=== PATIENT | male | born 1995 | race Caucasian/White ===

== ENCOUNTER → 2016-10-18 | Outpatient (CLI) | payer SELFPAY ==
[2016-10-18 09:46] LABS: SPERM MORPHOLOGY SENT TO REFERENC LAB
[2016-10-18 10:50] LABS: ROUND CELL CONC. 5.3 X10^6/mL (<5.1); SA NONMOTILE CONCENTRATION 33.3 X10^6/mL; SA NONMOTILE COUNT1 329; SA NONMOTILE COUNT2 337; SA ROUND CELL COUNT1 54; SA ROUND CELL COUNT2 51
[2016-10-18 11:01] LABS: SA DILUTION CNT 1 730; SA DILUTION CNT 2 751; SA DILUTION FACTOR 3; SA SPERM MOTILE CONC 188.9 X10^6mL; SPERM PROGRESSION 4
== END ==
LOC: LAB 09:08
PROVIDERS: ATTEND Nurse Practitioner Family
DX: N46.9 Male infertility, unspecified (principal)
CPT/HCPCS: 89320

== ENCOUNTER 2017-02-26 15:42 | Inpatient (IN) | payer SELFPAY ==
[2017-02-26] MEDS ORDERED: NORMAL SALINE 1000 ML 2,000 ML IV ONE (16:12)
[2017-02-26] MEDS ORDERED: NORMAL SALINE 100 ML with INSULIN REGULAR, HUMAN 100 UNIT IV PRN ×2 (16:12)
--- NOTE | 2017-02-26 16:14 | ER Document Report ---
ED Blood Sugar Problem - General Mode of Arrival: Ambulatory Information source: Patient TRAVEL OUTSIDE OF THE [place] IN LAST 30 DAYS: No - HPI Patient complains to provider of: Hyperglycemia Onset: This morning Associated symptoms: Other - see notes above <RAFAEL CHONG - Last Filed: 02/26/17 18:19> <GIBSON ALSTON - Last Filed: 02/26/17 19:21> - General Chief Complaint: High Blood Sugar Stated Complaint: BLOOD SUGAR PROBLEMS Time Seen by Provider: 02/26/17 16:06 Notes: 22 year old male with history of diabetes mellitus type I and DKA presents to the ED complaining of hyperglycemia that started this morning. Patient's blood sugar this morning after waking up was greater than 600, but is unsure of the exact number since his monitor doesn't read that high. Patient states he tried to get out of work, but was told that he needed a doctor's note. Patient arrived at work and was told to clock out after a few minutes and go home. Patient then proceeded to come to the ED to be evaluated. Blood sugar over the past couple days have been under 300. Patient states he normally runs in the 200s. Patient reports nausea, but denies fever, abdominal pain, vomiting, diarrhea, and blurry vision. Patient reports that he is staying hydrated. Patient states he does not have a primary care provider but [facility] is prescribing Novolog and Toujeo which he is taking as prescribed. Patient feels similar to prior episode of DKA, but not as severe. (RAFAEL CHONG) - Related Data Allergies/Adverse Reactions: No Known Allergies Allergy (Verified 02/26/17 15:47) Past Medical History - General Information source: Patient - Social History Smoking Status: Never Smoker Chew tobacco use (# tins/day): No Frequency of alcohol use: Occasional Drug Abuse: None Family History: Reviewed & Not Pertinent Patient has suicidal ideation: No Patient has homicidal ideation: No - Past Medical History Cardiac Medical History: Denies: Hx Heart Murmur Endocrine Medical History: Reports: Hx Diabetes Mellitus Type 1 Renal/ Medical History: Denies: Hx Peritoneal Dialysis Psychiatric Medical History: Denies: Hx Depression Surgical Hx: Negative - Immunizations Immunizations up to date: Yes Hx Diphtheria, Pertussis, Tetanus Vaccination: Yes <RAFAEL CHONG - Last Filed: 02/26/17 18:19> Review of Systems - Review of Systems Constitutional: No symptoms reported. denies: Fever EENT: No symptoms reported Cardiovascular: No symptoms reported Respiratory: No symptoms reported Gastrointestinal: See HPI, Nausea. denies: Abdominal pain, Diarrhea, Vomiting Genitourinary: No symptoms reported Male Genitourinary: No symptoms reported Musculoskeletal: No symptoms reported Skin: No symptoms reported Hematologic/Lymphatic: No symptoms reported Neurological/Psychological: No symptoms reported -: Yes All other systems reviewed and negative <RAFAEL CHONG - Last Filed: 02/26/17 18:19> Physical Exam <RAFAEL CHONG - Last Filed: 02/26/17 18:19> <GIBSON ALSTON - Last Filed: 02/26/17 19:21> - Vital signs Vitals: Temp Pulse Resp BP Pulse Ox 98.3 F 102 H 16 138/74 H 97 02/26/17 15:48 02/26/17 15:48 02/26/17 15:48 02/26/17 15:48 02/26/17 15:48 - Notes Notes: GENERAL: Alert, interacts well. Appears fatigued. HEAD: Normocephalic, atraumatic. EYES: Pupils equal, round, and reactive to light. Extraocular movements intact. ENT: Oral mucosa dry, tongue midline. NECK: Full range of motion. Supple. Trachea midline. LUNGS: Clear to auscultation bilaterally, no wheezes, rales, or rhonchi. No respiratory distress. HEART: Regular rhythm, but mildly tachycardic. 1/6 systolic murmur. No gallops or rubs. ABDOMEN: Soft, non-tender. Non-distended. Bowel sounds present in all 4 quadrants. EXTREMITIES: Moves all 4 extremities spontaneously. No edema, radial and dorsalis pedis pulses 2/4 bilaterally. No cyanosis. NEUROLOGICAL: Alert and oriented x3. Normal speech. PSYCH: Normal affect, normal mood. SKIN: Warm, dry, normal turgor. No rashes or lesions noted. (RAFAEL CHONG) Course - Laboratory Result Diagrams: 02/26/17 16:15 02/26/17 16:15 - Consults Dr. Mancia Time consulted: 17:40 <RFAAEL CHONG - Last Filed: 02/26/17 18:19> - Laboratory Result Diagrams: 02/26/17 16:15 02/26/17 16:15 <GIBSON ALSTON - Last Filed: 02/26/17 19:21> - Re-evaluation Re-evalutation: 02/26/17 17:47 Patient started on insulin drip and given 2 L normal saline bolus, tachycardia has improved, laboratory studies are consistent with diabetic ketoacidosis, CBC unremarkable, ABG shows metabolic acidosis with pH of 7.31, CO2 of 34 and bicarb of 17.1. Chemistry show pseudohyponatremia with a sodium of 132.2, hyperkalemia 5.4, CO2 low at 18 anion gap elevated at 21, glucose significantly elevated at 619. Patient was discussed with Dr. Mancia who agrees to accept the patient to his service in the intensive care unit. (GIBSON ALSTON) - Vital Signs Vital signs: Temp Pulse Resp BP Pulse Ox 98.3 F 102 H 16 138/74 H 97 02/26/17 15:48 02/26/17 15:48 02/26/17 15:48 02/26/17 15:48 02/26/17 15:48 - Laboratory Laboratory results interpreted by me: 02/26/17 02/26/17 02/26/17 16:15 16:15 17:10 MCHC 31.9 L RDW 14.3 H Carbonic Acid 1.04 L ABG pH 7.31 L ABG pCO2 34.5 L ABG pO2 109.0 H ABG HCO3 17.1 L ABG Total CO2 18.2 L Sodium 132.2 L Potassium 5.4 H Chloride 93 L Carbon Dioxide 18 L Anion Gap 21 H Glucose 619 H* Total Bilirubin 1.4 H Alkaline Phosphatase 211 H Urine Glucose (UA) Urine Ketones 02/26/17 18:00 MCHC RDW Carbonic Acid ABG pH ABG pCO2 ABG pO2 ABG HCO3 ABG Total CO2 Sodium Potassium Chloride Carbon Dioxide Anion Gap Glucose Total Bilirubin Alkaline Phosphatase Urine Glucose (UA) >=500 H Urine Ketones 80 H - EKG Interpretation by Me Additional EKG results interpreted by me: 02/26/17 17:47 EKG shows sinus rhythm at a rate of 93, normal axis, normal intervals, no ST segment elevations or depressions, no T-wave inversion, no peak T waves, no ill effects from the hyperkalemia per my interpretation. (GIBSON ALSTON) - Consults Dr. Mancia Reason for consultation: 02/26/17 17:40 Patient was discussed with Dr. Mancia who agrees to admit the patient. (RAFAEL CHONG) Critical Care Note - Critical Care Note Total time excluding time spent on procedures (mins): 45 <GIBSON ALSTON - Last Filed: 02/26/17 19:21> Discharge <RAFAEL CHONG - Last Filed: 02/26/17 18:19> - Discharge Admitting Provider: Grace Mancia Unit Admitted: ICU <GIBSON ALSTON - Last Filed: 02/26/17 19:21> - Discharge Clinical Impression: DKA (diabetic ketoacidoses) Qualifiers: Diabetes mellitus type: type 1 Diabetes mellitus complication detail: without coma Qualified Code(s): E10.10 - Type 1 diabetes mellitus with ketoacidosis without coma Condition: Serious Disposition: ADMITTED INPATIENT Scribe Attestation: 02/26/17 19:21 I personally performed the services described in the documentation, reviewed and edited the documentation which was dictated to the scribe in my presence, and it accurately records my words and actions. (GIBSON ALSTON) Scribe Documentation - Scribe Written by Sherif:: Sherif Pepe, 02/26/2017 1733 acting as scribe for :: Annelise <RAFAEL CHONG - Last Filed: 02/26/17 18:19>
[2017-02-26 16:24] LABS: ABSOLUTE EOSINOPHILS # (AUTO) 0.2 10^3/uL (0.0-0.6); ABSOLUTE LYMPHOCYTES (AUTO) 1.8 10^3/uL (0.5-4.7); ABSOLUTE MONOCYTES (AUTO) 0.5 10^3/uL (0.1-1.4); ABSOLUTE NEUT (AUTO) 5.8 10^3/uL (1.7-8.2); BASOPHILS % (AUTO) 0.1 % (0-2); EOSINOPHILS % (AUTO) 2.6 % (0-6); HEMATOCRIT 44.7 % (37.9-51.0); HEMOGLOBIN 14.2 g/dL (13.5-17.0); HGB HCT DIFFERENCE -2.1; LYMPHOCYTES % (AUTO) 21.8 % (13-45); MEAN CORPUSCULAR HEMOGLOBIN 28.6 pg (27.0-33.4); MEAN CORPUSCULAR HGB CONC 31.9 g/dL (32.0-36.0); MEAN CORPUSCULAR VOLUME 90 fl (80-97); RED BLOOD COUNT 4.98 10^6/uL (4.35-5.55); RED CELL DISTRIBUTION WIDTH 14.3 % (11.5-14.0); SEGMENTED NEUTROPHILS % (AUTO) 69.5 % (42-78); WHITE BLOOD COUNT 8.4 10^3/uL (4.0-10.5)
[2017-02-26] MEDS ORDERED: INSULIN REG, HUMAN 100 UNIT/ML 3 ML VIAL (PYX) ONE (16:38)
[2017-02-26 16:41] LABS: ALANINE AMINOTRANSFERASE 63 U/L (21-72); ALBUMIN 4.6 g/dL (3.5-5.0); ALKALINE PHOSPHATASE 211 U/L (38-126); ASPARTATE AMINO TRANSFERASE 49 U/L (17-59); BILIRUBIN,DIRECT 0.4 mg/dL (0.0-0.4); BILIRUBIN,TOTAL 1.4 mg/dL (0.2-1.3); BLOOD UREA NITROGEN 20 mg/dL (7-20); CALCIUM 9.8 mg/dL (8.4-10.2); CHLORIDE 93 mmol/L (98-107); CREATININE RESULT 0.89 mg/dL (0.52-1.25); POTASSIUM 5.4 mmol/L (3.6-5.0); TOTAL PROTEIN 7.7 g/dL (6.3-8.2)
[2017-02-26 16:49] LABS: GLUCOSE 619 mg/dL (75-110)
[2017-02-26 16:51] LABS: ANION GAP 21 (5-19); CARBON DIOXIDE 18 mmol/L (22-30); SODIUM 132.2 mmol/L (137-145)
[2017-02-26 17:34] LABS: ARTERIAL BLOOD BASE EXCESS -8.1 mmol/L; ARTERIAL BLOOD O2 SATURATION 97.6 % (94-98)
[2017-02-26] MEDS ORDERED: GLUCAGON,HUMAN RECOMB 1 MG INJ IM PRN (18:03)
[2017-02-26] MEDS ORDERED: DEXTROSE 5%-NORMAL SALINE 1,000 ML IV PRN (18:03)
[2017-02-26] MEDS ORDERED: IPRATROPIUM/ALBUTEROL 0.5-2.5 MG/3 ML AMPUL NEB PRN (18:03)
[2017-02-26] MEDS ORDERED: ACETAMINOPHEN 325 MG TABLET PO PRN (18:03)
[2017-02-26] MEDS ORDERED: DEXTROSE 40% GEL 15 GM TUBE PO PRN ×2 (18:03)
[2017-02-26] MEDS ORDERED: DEXTROSE 50%-WATER 25 GM/50 ML DISP.SYRIN IV PRN ×2 (18:03)
[2017-02-26] MEDS ORDERED: ONDANSETRON HCL INJ/PF 4 MG/2 ML SDV IV PRN (18:08)
[2017-02-26 18:21] LABS: APPEARANCE,URINE CLEAR; BILIRUBIN,URINE NEGATIVE (NEGATIVE); GLUCOSE, URINE >=500 mg/dL (NEGATIVE); KETONES,URINE 80 mg/dL (NEGATIVE); LEUKOCYTE ESTERASE,URINE NEGATIVE (NEGATIVE); NITRITE,URINE NEGATIVE (NEGATIVE); PROTEIN,URINE NEGATIVE (NEGATIVE); URINE SPECIFIC GRAVITY 1.024; UROBILINOGEN,URINE NEGATIVE mg/dL (<2.0)
--- NOTE | 2017-02-26 18:27 | PDOC H&P ---
History of Present Illness Admission Date/PCP: 02/26/2017 [facility] Patient complains of: high blood sugars History of Present Illness: CHEPE WALKER is a 22 year old male with type I DM used to be on pump but lost his insurance and [facility] as [facility] can. Supposed to be taking 70/30 and sliding scale and notes his BSs usually run in the 300's for the last several weeks and now climbing over 600 in the last 24hrs. He denies fevers/chills, n/v/d, cough with phlegm, swollen glands, sore throat, rash, recent travels, [place], dysuria, dizziness, stiff neck, confusion, polyuria/polydipsia but is hungry all the time. he notes fatigue and lethargy for the last 48hrs. eval in ED shows DKA and he was referred for admisstion Past Medical History Cardiac Medical History: Denies: Heart Murmur Endocrine Medical History: Reports: Diabetes Mellitus Type 1 Psychiatric Medical History: Denies: Depression Past Surgical History Past Surgical History: Reports: None Social History Information Source: Patient Smoking Status: Never Smoker Frequency of Alcohol Use: None Hx Recreational Drug Use: No Hx Prescription Drug Abuse: No - Advance Directive Resuscitation Status: Full Code Family History Family History: DM Parental Family History Reviewed: Yes Children Family History Reviewed: Yes Sibling(s) Family History Reviewed.: Yes Medication/Allergy Home Medications: Insulin Regular, Human [Novolin R (Reg) Insulin 100 unit/mL] 0 unit SUBCUT .SLD SCALE 06/08/14 NPH, Human Insulin Isophane [Novolin N (NPH) Insulin 100 unit/mL] 20 units SUBCUT BID 06/08/14 Dicyclomine HCl [Bentyl 20 mg Tablet] 20 mg PO QID #20 tablet 03/18/15 Ondansetron [Zofran Odt 4 mg Tablet] 1 - 2 tab PO Q4HP PRN #10 tab.rapdis Allergies/Adverse Reactions: No Known Allergies Allergy (Verified 02/26/17 15:47) Review of Systems All systems: reviewed and no additional remarkable complaints except as stated - all systems reviewed, see HPI, remaining systems negative Physical Exam Vital Signs: Temp Pulse Resp BP Pulse Ox 98.3 F 102 H 16 138/74 H 97 02/26/17 15:48 02/26/17 15:48 02/26/17 15:48 02/26/17 15:48 02/26/17 15:48 Intake & Output 02/25/17 02/26/17 02/27/17 06:59 06:59 06:59 Weight 74.3 kg General appearance: PRESENT: no acute distress, thin, well-developed, well- nourished Head exam: PRESENT: atraumatic, normocephalic Eye exam: PRESENT: EOMI. ABSENT: conjunctival injection, scleral icterus Mouth exam: PRESENT: moist, neck supple Throat exam: ABSENT: tonsillar erythema, tonsillar exudate Neck exam: PRESENT: full ROM. ABSENT: lymphadenopathy, tenderness Respiratory exam: PRESENT: clear to auscultation carrie. ABSENT: accessory muscle use Cardiovascular exam: PRESENT: RRR. ABSENT: systolic murmur, tachycardia Pulses: PRESENT: normal radial pulses, normal dorsalis pedis pul Vascular exam: PRESENT: normal capillary refill GI/Abdominal exam: PRESENT: normal bowel sounds, soft. ABSENT: tenderness Extremities exam: ABSENT: calf tenderness, pedal edema Musculoskeletal exam: PRESENT: ambulatory, full ROM Neurological exam: PRESENT: alert, awake, oriented to person, oriented to place , oriented to time, oriented to situation Psychiatric exam: PRESENT: appropriate affect, normal mood Skin exam: PRESENT: warm, other - no callouses. ABSENT: rash Results Laboratory Results: 02/26/17 16:15 02/26/17 16:15 02/26/17 02/26/17 02/26/17 16:15 16:15 17:10 WBC 8.4 RBC 4.98 Hgb 14.2 Hct 44.7 MCV 90 MCH 28.6 MCHC 31.9 L RDW 14.3 H Plt Count 220 Seg Neutrophils % 69.5 Lymphocytes % 21.8 Monocytes % 6.0 Eosinophils % 2.6 Basophils % 0.1 Absolute Neutrophils 5.8 Absolute Lymphocytes 1.8 Absolute Monocytes 0.5 Absolute Eosinophils 0.2 Absolute Basophils 0.0 Carbonic Acid 1.04 L HCO3/H2CO3 Ratio 16:1 ABG pH 7.31 L ABG pCO2 34.5 L ABG pO2 109.0 H ABG HCO3 17.1 L ABG O2 Saturation 97.6 ABG Base Excess -8.1 FiO2 ROOM AIR Sodium 132.2 L Potassium 5.4 H Chloride 93 L Carbon Dioxide 18 L Anion Gap 21 H BUN 20 Creatinine 0.89 Est GFR ( Amer) > 60 Est GFR (Non-Af Amer) > 60 Glucose 619 H* Calcium 9.8 Total Bilirubin 1.4 H AST 49 ALT 63 Alkaline Phosphatase 211 H Total Protein 7.7 Albumin 4.6 Assessment & Plan - Diagnosis (1) Hyponatremia Is this a current diagnosis for this admission?: YesPlan: IVFs and monitor (2) Hyperkalemia Is this a current diagnosis for this admission?: YesPlan: likely 2/2 acidosis; IVFs and monitor, will drop with insulin gtt (3) DKA (diabetic ketoacidoses) Qualifiers: Diabetes mellitus type: type 1 Diabetes mellitus complication detail: without coma Qualified Code(s): E10.10 - Type 1 diabetes mellitus with ketoacidosis without coma Is this a current diagnosis for this admission?: YesPlan: admit to ICU for insulin gtt, IVFs, serial BMPs. he is hungry and acidosis is mild so will go ahead and feed him. just leave him on the insulin gtt overnight and I will switch him over in the morning to basal/bolus regimen. most likely he has an insulin deficiency and nothing more based on normal exam and workup. ck A1c (4) Diabetes mellitus type 1 Qualifiers: Diabetes mellitus complication status: with unspecified complications Qualified Code(s): E10.8 - Type 1 diabetes mellitus with unspecified complications Is this a current diagnosis for this admission?: Yes - Time Time Spent: 50 to 70 Minutes Medications reviewed and adjusted accordingly: Yes Anticipated discharge: Home Within: within 48 hours - Inpatient Certification Based on my medical assessment, after consideration of the patient's comorbidities, presenting symptoms, or acuity I expect that the services needed warrant INPATIENT care.: Yes I certify that my determination is in accordance with my understanding of Medicare's requirements for reasonable and necessary INPATIENT services [42 CFR 412.3e].: Yes Medical Necessity: Significant Comorbidiites Make Outpatient Treatment Too Risky , Need For IV Fluids, Need For Continuous Telemetry Monitoring, Risk of Complication if Not Cared For in Hospital
[2017-02-26 19:10] LABS: BLOOD UREA NITROGEN 17 mg/dL (7-20); CALCIUM 9.2 mg/dL (8.4-10.2); CARBON DIOXIDE 18 mmol/L (22-30); CHLORIDE 102 mmol/L (98-107); CREATININE RESULT 0.85 mg/dL (0.52-1.25); GLUCOSE 272 mg/dL (75-110)
[2017-02-26 19:33] LABS: ANION GAP 19 (5-19); POTASSIUM 4.8 mmol/L (3.6-5.0); SODIUM 138.7 mmol/L (137-145)
[2017-02-26] MEDS ORDERED: FAMOTIDINE 20 MG TABLET PO SCH (22:00)
--- NOTE | 2017-02-26 22:17 | EKG REPORT ---
SEVERITY:- NORMAL ECG - SINUS RHYTHM : Confirmed by: Ricardo Fox 26-Feb-2017 22:17:04
[2017-02-27 00:40] LABS: ANION GAP 11 (5-19); BLOOD UREA NITROGEN 17 mg/dL (7-20); CALCIUM 8.8 mg/dL (8.4-10.2); CARBON DIOXIDE 21 mmol/L (22-30); CHLORIDE 108 mmol/L (98-107); CREATININE RESULT 0.78 mg/dL (0.52-1.25); GLUCOSE 216 mg/dL (75-110); SODIUM 139.8 mmol/L (137-145)
[2017-02-27 00:46] LABS: POTASSIUM 3.7 mmol/L (3.6-5.0)
[2017-02-27 01:10] LABS: ADD ON TESTING BLD IN LAB ACKNOWLEDGE
[2017-02-27] MEDS ORDERED: POTASSIUM CHLORIDE 20 MEQ/15 ML UDCUP ONE (01:11)
[2017-02-27 01:19] LABS: MAGNESIUM 1.8 mg/dL (1.6-2.3)
[2017-02-27] MEDS ORDERED: POTASSIUM CHLORIDE 20 MEQ/15 ML UDCUP PO ONE ×2 (01:30→03:00)
[2017-02-27 06:27] LABS: ABSOLUTE EOSINOPHILS # (AUTO) 0.4 10^3/uL (0.0-0.6); ABSOLUTE MONOCYTES (AUTO) 0.4 10^3/uL (0.1-1.4); ABSOLUTE NEUT (AUTO) 2.7 10^3/uL (1.7-8.2); BASOPHILS % (AUTO) 0.4 % (0-2); HEMATOCRIT 35.9 % (37.9-51.0); HGB HCT DIFFERENCE -0.8; LYMPHOCYTES % (AUTO) 46.9 % (13-45); MEAN CORPUSCULAR HEMOGLOBIN 28.4 pg (27.0-33.4); MEAN CORPUSCULAR HGB CONC 32.6 g/dL (32.0-36.0); MEAN CORPUSCULAR VOLUME 87 fl (80-97); MONOCYTES % (AUTO) 5.7 % (3-13); RED BLOOD COUNT 4.12 10^6/uL (4.35-5.55); RED CELL DISTRIBUTION WIDTH 13.7 % (11.5-14.0); WHITE BLOOD COUNT 6.5 10^3/uL (4.0-10.5)
[2017-02-27 06:30] LABS: HEMOGLOBIN 11.7 g/dL (13.5-17.0)
[2017-02-27 06:33] LABS: ANION GAP 9 (5-19); BLOOD UREA NITROGEN 14 mg/dL (7-20); CALCIUM 8.8 mg/dL (8.4-10.2); CARBON DIOXIDE 23 mmol/L (22-30); CHLORIDE 111 mmol/L (98-107); GLUCOSE 127 mg/dL (75-110); POTASSIUM 3.7 mmol/L (3.6-5.0); SODIUM 143.4 mmol/L (137-145)
[2017-02-27] MEDS ORDERED: INSULIN LISPRO 100 UNIT/ML 3 ML VIAL SUBCUT PRN (07:36)
[2017-02-27] MEDS ORDERED: INSULIN GLARGINE,HUM.REC.ANLOG 1,000 UNIT/10 ML UNIT SUBCUT ONE (08:00)
[2017-02-27] MEDS ORDERED: DOCUSATE SODIUM 100 MG CAPSULE PO SCH (10:00)
[2017-02-27] MEDS ORDERED: INSULIN GLARGINE,HUM.REC.ANLOG 300 UNIT/3 ML INSULN.PEN SUBCUT SCH (10:00)
[2017-02-27 10:08] VITALS: BP 112/68
--- NOTE | 2017-02-27 11:10 | PDOC DISCHARGE SUMMARY ---
General - Admit/Disc Date/PCP Admission Date/Primary Care Provider: 02/26/17 18:03 Discharge Date: 02/27/17 - Discharge Diagnosis (1) DKA (diabetic ketoacidoses) Is this a current diagnosis for this admission?: YesSummary: likely 2/2 insulin deficiency, resolved overnight with insulin gtt, no inciting pathology found otherwise. stable for d/c home with Rx given for insulin. (2) Hyponatremia Is this a current diagnosis for this admission?: YesSummary: 2/2 above, resolved with IVFs and treatment (3) Hyperkalemia Is this a current diagnosis for this admission?: YesSummary: 2/2 above, resolved with IVFs and treatment (4) Diabetes mellitus type 1 Is this a current diagnosis for this admission?: YesSummary: poorly controlled, A1c 9.3. counseled regarding compliance with insulin regimen , not sure how receptive he was - Additional Information Resuscitation Status: Full Code Discharge Diet: Diabetic Discharge Activity: Activity As Tolerated Home Medications: Insulin Aspart [Novolog Flexpen] 0 unit SUBCUT .SLD SCALE #1 pen 02/27/17 Insulin Glargine,Hum.rec.anlog [Lantus] 36 unit SQ QHS 30 Days 02/27/17 History of Present Illness Patient complains of: high blood sugars History of Present Illness: CHEPE WALKER is a 22 year old male with type I DM used to be on pump but lost his insurance and [facility] him as [facility] can. Supposed to be taking 70/30 and sliding scale and notes his BSs usually run in the 300's for the last several weeks and now climbing over 600 in the last 24hrs. He denies fevers/chills, n/v/d, cough with phlegm, swollen glands, sore throat, rash, recent travels, [place], dysuria, dizziness, stiff neck, confusion, polyuria/polydipsia but is hungry all the time. he notes fatigue and lethargy for the last 48hrs. eval in ED shows DKA and he was referred for admisstion Hospital Course Hospital Course: admitted to ICU on insulin gtt with rapid improvement in his acidbase disorder and electrolyte abnls, tolerating a diet, no other pathologic process identified and he is stable for d/c home on regimen noted. Physical Exam Vital Signs: Temp Pulse Resp BP Pulse Ox 98.7 F 92 18 131/74 H 99 02/27/17 09:31 02/27/17 09:31 02/27/17 09:31 02/27/17 09:31 02/27/17 09:31 Intake & Output 02/26/17 02/27/17 02/28/17 06:59 06:59 06:59 Intake Total 1313 Output Total 1850 950 Balance -537 -950 Weight 76 kg General appearance: PRESENT: no acute distress, well-developed, well-nourished Head exam: PRESENT: atraumatic, normocephalic Eye exam: PRESENT: EOMI Respiratory exam: PRESENT: clear to auscultation carrie. ABSENT: accessory muscle use Cardiovascular exam: PRESENT: RRR GI/Abdominal exam: PRESENT: normal bowel sounds, soft. ABSENT: tenderness Musculoskeletal exam: PRESENT: ambulatory, full ROM Neurological exam: PRESENT: oriented to person, oriented to place, oriented to time Psychiatric exam: PRESENT: appropriate affect, normal mood Skin exam: PRESENT: warm. ABSENT: rash Results Laboratory Results: 02/27/17 06:04 02/27/17 06:04 02/26/17 02/27/17 02/27/17 18:43 00:21 00:21 WBC RBC Hgb Hct MCV MCH MCHC RDW Plt Count Seg Neutrophils % Lymphocytes % Monocytes % Eosinophils % Basophils % Absolute Neutrophils Absolute Lymphocytes Absolute Monocytes Absolute Eosinophils Absolute Basophils Sodium 138.7 139.8 Potassium 4.8 3.7 D Chloride 102 108 H Carbon Dioxide 18 L 21 L Anion Gap 19 11 BUN 17 17 Creatinine 0.85 0.78 Est GFR ( Amer) > 60 > 60 Est GFR (Non-Af Amer) > 60 > 60 Glucose 272 H 216 H Calcium 9.2 8.8 Magnesium 1.8 02/27/17 02/27/17 06:04 06:04 WBC 6.5 RBC 4.12 L Hgb 11.7 L D Hct 35.9 L MCV 87 MCH 28.4 MCHC 32.6 RDW 13.7 Plt Count 196 Seg Neutrophils % 41.0 L Lymphocytes % 46.9 H Monocytes % 5.7 Eosinophils % 6.0 Basophils % 0.4 Absolute Neutrophils 2.7 Absolute Lymphocytes 3.0 Absolute Monocytes 0.4 Absolute Eosinophils 0.4 Absolute Basophils 0.0 Sodium 143.4 Potassium 3.7 Chloride 111 H Carbon Dioxide 23 Anion Gap 9 BUN 14 Creatinine 0.70 Est GFR ( Amer) > 60 Est GFR (Non-Af Amer) > 60 Glucose 127 H Calcium 8.8 Magnesium Qualifiers PATEINT BEING DISCHARGED WITH ANY OF THE FOLLOWING DIAGNOSIS?: No VTE patient discharged on overlapping Therapy?: No Reason(s) for not prescribing Overlap Therapy:: Not indicated Plan Discharge Plan: d/c home with insulin; /fu [facility] in one week Time Spent: Greater than 30 Minutes
[2017-02-28] MEDS ORDERED: INSULIN GLARGINE,HUM.REC.ANLOG 300 UNIT/3 ML INSULN.PEN SUBCUT SCH (10:00)
== END 2017-02-27 12:08 | disposition home or self-care (01) | DRG 638 ==
LOC: ER 15:42 → EH 18:03 → UNDOADMIN 18:14 → EH 18:14 → ICU 19:53
PROVIDERS: ADMIT Family Medicine; ATTEND Family Medicine
DX: E10.10 Type 1 diabetes mellitus with ketoacidosis without coma (principal); E87.1 Hypo-osmolality and hyponatremia; E87.5 Hyperkalemia; Z79.4 Long term (current) use of insulin
CPT/HCPCS: 36415; 80048; 80053; 81001; 82803; 82962; 83036; 83735; 85025; 93005; 93010; 99291; J1815; J7030

== ENCOUNTER → 2017-07-27 | Outpatient (CLI) | payer OTHER ==
[2017-07-30 09:50] LABS: ABSOLUTE EOSINOPHILS # (AUTO) 0.3 10^3/uL (0.0-0.6); ABSOLUTE LYMPHOCYTES (AUTO) 1.6 10^3/uL (0.5-4.7); ABSOLUTE MONOCYTES (AUTO) 0.4 10^3/uL (0.1-1.4); ABSOLUTE NEUT (AUTO) 3.2 10^3/uL (1.7-8.2); BASOPHILS % (AUTO) 0.4 % (0-2); EOSINOPHILS % (AUTO) 5.7 % (0-6); HEMATOCRIT 43.9 % (37.9-51.0); HEMOGLOBIN 14.4 g/dL (13.5-17.0); HGB HCT DIFFERENCE -0.7; LYMPHOCYTES % (AUTO) 28.8 % (13-45); MEAN CORPUSCULAR HEMOGLOBIN 27.7 pg (27.0-33.4); MEAN CORPUSCULAR HGB CONC 32.8 g/dL (32.0-36.0); MEAN CORPUSCULAR VOLUME 85 fl (80-97); MONOCYTES % (AUTO) 7.4 % (3-13); RED CELL DISTRIBUTION WIDTH 13.3 % (11.5-14.0); SEGMENTED NEUTROPHILS % (AUTO) 57.7 % (42-78); WHITE BLOOD COUNT 5.5 10^3/uL (4.0-10.5)
[2017-07-30 10:10] LABS: ALANINE AMINOTRANSFERASE 29 U/L (21-72); ALBUMIN 4.5 g/dL (3.5-5.0); ALKALINE PHOSPHATASE 142 U/L (38-126); ANION GAP 13 (5-19); ASPARTATE AMINO TRANSFERASE 22 U/L (17-59); BILIRUBIN,DIRECT 0.3 mg/dL (0.0-0.4); BILIRUBIN,TOTAL 0.7 mg/dL (0.2-1.3); BLOOD UREA NITROGEN 17 mg/dL (7-20); CALCIUM 9.5 mg/dL (8.4-10.2); CARBON DIOXIDE 26 mmol/L (22-30); CHLORIDE 103 mmol/L (98-107); CREATININE RESULT 0.79 mg/dL (0.52-1.25); Direct HDL 66 mg/dL (>40); GLUCOSE 229 mg/dL (75-110); POTASSIUM 5.1 mmol/L (3.6-5.0); SODIUM 141.8 mmol/L (137-145); TOTAL PROTEIN 7.4 g/dL (6.3-8.2); TRIGLYCERIDES 103 mg/dL (<150)
[2017-07-30 10:21] LABS: DIRECT LDL 86 mg/dL (<100)
== END ==
LOC: CCC 10:13
DX: E10.8 Type 1 diabetes mellitus with unspecified complications (principal)
CPT/HCPCS: 36415; 80053; 80061; 83036; 84443; 85025

== ENCOUNTER 2017-10-10 18:26 | Emergency (ER) | payer OTHER ==
[2017-10-10] MEDS ORDERED: NORMAL SALINE 1000 ML 1,000 ML IV ONE ×2 (19:07→21:44)
[2017-10-10] MEDS ORDERED: IBUPROFEN 800 MG TABLET PO ONE (19:09)
[2017-10-10] MEDS ORDERED: ACETAMINOPHEN 325 MG TABLET PO ONE (19:09)
--- NOTE | 2017-10-10 19:15 | ER Document Report ---
ED Medical Screen (RME) - General Chief Complaint: Fever Stated Complaint: FEVER Time Seen by Provider: 10/10/17 19:05 Mode of Arrival: Wheelchair Information source: Patient, Parent TRAVEL OUTSIDE OF THE [place] IN LAST 30 DAYS: No - HPI Notes: 10/10/17 19:10 22 yr old hx of dka and type 1 diabetes presents today with complaints of fever that started 1 day ago and today he started with a fever of 103 this morning. reports nausea, shaking, tachypnea, lethargy that is becoming progressively worse. did not get the flu shot this year. Denies any rashes. not eating well, not drinking well. increased urination. denies rashes. pcp is at [facility]. - Related Data Allergies/Adverse Reactions: shellfish derived Allergy (Severe, Verified 10/10/17 18:34) Anaphylaxis Past Medical History - Past Medical History Cardiac Medical History: Denies: Hx Heart Murmur Endocrine Medical History: Reports: Hx Diabetes Mellitus Type 1 Renal/ Medical History: Denies: Hx Peritoneal Dialysis Psychiatric Medical History: Denies: Hx Depression - Immunizations Immunizations up to date: Yes Hx Diphtheria, Pertussis, Tetanus Vaccination: Yes Physical Exam - Vital signs Vitals: Temp Pulse Resp BP Pulse Ox 100.1 F 123 H 20 143/82 H 97 10/10/17 18:39 10/10/17 18:39 10/10/17 18:39 10/10/17 18:39 10/10/17 18:39 - General In distress: Mild - Respiratory Respiratory status: No respiratory distress Chest status: Accessory muscle use Breath sounds: Normal Chest palpation: Normal - Cardiovascular Rhythm: Tachycardia - Abdominal Inspection: Normal Distension: No distension Bowel sounds: Normal Tenderness: Nontender Organomegaly: No organomegaly Course - Vital Signs Vital signs: Temp Pulse Resp BP Pulse Ox 100.1 F 123 H 20 143/82 H 97 10/10/17 18:39 10/10/17 18:39 10/10/17 18:39 10/10/17 18:39 10/10/17 18:39 - Laboratory Laboratory results interpreted by me: 10/10/17 18:36 POC Glucose 222 H
--- NOTE | 2017-10-10 20:07 | RADIOLOGY REPORT (SQ) ---
EXAM DESCRIPTION: CHEST SINGLE VIEW COMPLETED DATE/TIME: 10/10/2017 7:59 pm REASON FOR STUDY: dka COMPARISON: 07/20/2016 EXAM PARAMETERS: NUMBER OF VIEWS: One view. TECHNIQUE: Single frontal radiographic view of the chest acquired. RADIATION DOSE: NA LIMITATIONS: None. FINDINGS: LUNGS AND PLEURA: No opacities, masses or pneumothorax. No pleural effusion. MEDIASTINUM AND HILAR STRUCTURES: No masses. Contour normal. HEART AND VASCULAR STRUCTURES: Heart normal in size. Normal vasculature. BONES: No acute findings. HARDWARE: None in the chest. OTHER: No other significant finding. IMPRESSION: NO ACUTE RADIOGRAPHIC FINDING IN THE CHEST. TECHNICAL DOCUMENTATION: JOB ID: [id number] [employer]- All Rights Reserved
--- NOTE | 2017-10-10 20:13 | ER Document Report ---
ED Fever - General Chief Complaint: Fever Stated Complaint: FEVER Time Seen by Provider: 10/10/17 19:05 Mode of Arrival: Wheelchair Notes: The patient is a 22-year-old male, past medical history type 1 diabetes, presents with 2 days of fevers, body aches, nausea and generalized weakness. He did not get the flu shot this year. Patient is concerned that he might be in DKA again. He denies shortness of breath, abdominal pain, urinary symptoms, rash, recent travel, headache, neck stiffness or seizures. TRAVEL OUTSIDE OF THE [place] IN LAST 30 DAYS: No - Related Data Allergies/Adverse Reactions: shellfish derived Allergy (Severe, Verified 10/10/17 18:34) Anaphylaxis Past Medical History - General Information source: Patient, Friend - Social History Smoking Status: Unknown if Ever Smoked Family History: DM - Past Medical History Cardiac Medical History: Denies: Hx Heart Murmur Endocrine Medical History: Reports: Hx Diabetes Mellitus Type 1 Renal/ Medical History: Denies: Hx Peritoneal Dialysis Psychiatric Medical History: Denies: Hx Depression - Immunizations Immunizations up to date: Yes Hx Diphtheria, Pertussis, Tetanus Vaccination: Yes Review of Systems - Review of Systems Notes: REVIEW OF SYSTEMS: CONSTITUTIONAL: +fevers, +chills EENT: -eye pain, -difficulty swallowing, -nasal congestion CARDIOVASCULAR: -chest pain, -syncope. RESPIRATORY: -cough, -SOB GASTROINTESTINAL: -abdominal pain, +nausea, +vomiting, -diarrhea GENITOURINARY: -dysuria, -hematuria MUSCULOSKELETAL: -back pain, -neck pain SKIN: -rash or skin lesions. HEMATOLOGIC: -easy bruising or bleeding. LYMPHATIC: -swollen, enlarged glands. NEUROLOGICAL: -altered mental status or loss of consciousness, -headache, - neurologic symptoms PSYCHIATRIC: -anxiety, -depression. ALL OTHER SYSTEMS REVIEWED AND NEGATIVE. Physical Exam - Vital signs Vitals: Temp Pulse Resp BP Pulse Ox 100.1 F 123 H 20 143/82 H 97 10/10/17 18:39 10/10/17 18:39 10/10/17 18:39 10/10/17 18:39 10/10/17 18:39 - Notes Notes: PHYSICAL EXAMINATION: GENERAL: No acute distress. HEAD: Atraumatic, normocephalic. EYES: Pupils equal round and reactive to light, extraocular movements intact, sclera anicteric, conjunctiva are normal. ENT: nares patent, oropharynx clear without exudates. Moist mucous membranes. NECK: Normal range of motion, supple without lymphadenopathy LUNGS: Breath sounds clear to auscultation bilaterally and equal. No wheezes rales or rhonchi. HEART: Tachycardia, regular rhythm ABDOMEN: Soft, nontender, normoactive bowel sounds. No guarding, no rebound. No masses appreciated. EXTREMITIES: Normal range of motion, no pitting or edema. No cyanosis. NEUROLOGICAL: Cranial nerves grossly intact. Normal speech, normal gait. Normal sensory and motor exams. PSYCH: Normal mood, normal affect. SKIN: Warm, Dry, normal turgor, no rashes or lesions noted. Course - Re-evaluation Re-evalutation: Patient is not in DKA. Blood work is unremarkable. He appears to have symptoms of influenza. No rapid flu swabs available at [facility] at this time. Symptoms are ongoing for the past 3 days. Spoke to patient about risks and benefits of Tamiflu and will hold off on taking Tamiflu. Instructed him to stay hydrated, use Tylenol and Motrin for any fevers and body aches and follow with his primary care physician. Given very strict return precautions and he understands. - Vital Signs Vital signs: Temp Pulse Resp BP Pulse Ox 100.1 F 123 H 20 143/82 H 97 10/10/17 18:39 10/10/17 18:39 10/10/17 18:39 10/10/17 18:39 10/10/17 18:39 - Laboratory Result Diagrams: 10/10/17 20:20 10/10/17 20:20 Laboratory results interpreted by me: 10/10/17 10/10/17 10/10/17 18:36 20:02 20:20 Seg Neutrophils % 80.0 H Lymphocytes % 8.7 L Glucose POC Glucose 222 H 209 H Alkaline Phosphatase C-Reactive Protein 10/10/17 20:20 Seg Neutrophils % Lymphocytes % Glucose 237 H POC Glucose Alkaline Phosphatase 144 H C-Reactive Protein 19.7 H - Diagnostic Test Radiology reviewed: Image reviewed, Reports reviewed Radiology results interpreted by me: CXR: NAD Discharge - Discharge Clinical Impression: Flu-like symptoms Condition: Stable Disposition: HOME, SELF-CARE Additional Instructions: INFLUENZA: The physician feels that you have influenza -- the "flu". Influenza is an infection caused by a virus. Symptoms include generalized aching, fever, headache, dry cough, and fatigue. Some patients with the flu also have nausea, vomiting, and diarrhea. The fever and aches usually last two to four days, with the cough persisting another one to two weeks. Treatment of the flu, for the most part, is simply treatment of symptoms. Rest, drink plenty of fluids, and use acetaminophen for fever and aches. Do not take aspirin. There is an anti-viral medication, called Tamiflu, which may help in "type A" flu, but it's not helpful in every case of flu, and only works if started within the first 24 - 48 hours of the start of symptoms. The physician will determine whether this medication can help you. To prevent spread of the virus, use good handwashing. Shared toys should be cleaned with disinfectant. Clean the toilets, sinks, and counter surfaces in bathrooms. Launder clothing in hot water. What are conditions that should receive medical attention? The development of difficulty breathing. Lip color changes to blue or purple. Persistent vomiting and unable to keep liquids down with signs of dehydration such as: dizziness when standing, unable to urinate, or if child/ is crying no tears are noticed. Is less responsive than normal or becomes confused. How do I decrease the spread of flu in my home? Taking care of the sick patient at home: Keep the sick person in a room separate from the common areas of the house. Keep the "sickroom" door closed. If the person with the flu needs to leave the home, they should cover their nose/mouth when coughing or sneezing and wear a disposable (surgical) mask if available. These masks may be available at your local pharmacy, medical supply and hardware store. If the sick person is in common areas of the house, have them wear a surgical mask. If possible, have the sick person use a separate bathroom that should be cleaned daily with a household disinfectant. If you are the caregiver: Avoid being face to face with the sick adult person as much as possible. Try to stay at least 6 feet away and wear a disposable surgical mask when possible. When holding small children who are sick, place their chin on your shoulder so that they will not cough in your face. Wash your hands after you touch the sick person or handle their tissues and laundry. Wear a mask if you leave home, as you may be infected from taking care of someone and not know it yet. Watch yourself and others in the home for flu symptoms and contact your doctor if symptoms occur. NOTE: Antiviral medication used to reduce the symptoms of the flu works only if taken within 48 hours, and best within 24 hours of symptom onset. Household Cleaning, laundry and waste disposal: Tissues and other disposable items used by the sick person should be thrown away in the trash. Wash your hands after touching these used items. No special waste disposal is required. Keep surfaces (especially bedside tables, bathroom surfaces, and toys for children) clean by wiping them down with a safe household disinfectant according to the directions on the product label. Per Center for Disease Control advice, most people will not receive testing to confirm flu. Also based on the person's health history and onset of symptoms, not all patients will receive prescriptions for antiviral medications. If you have questions related to this, please ask your healthcare provider. For more information, you can call the Centers for Disease Control and Prevention (CDC) Hotline at 3-546-CRJ-INFO This line is available in [place] and [place], 24 hours a day, 7 days a week. Or www.[employer] or www.cdc.gov Flu-Like Illness Home Instructions: The influenza virus infection can cause a wide rage of symptoms, including: Fever, cough, sore throat, body aches, headaches, chills, fatigue, with some patients reporting diarrhea and vomiting Like seasonal influenza A, H1N1 ("swine flu")in humans can vary in severity from mild to severe Severe illness with pneumonia, respiratory failure and even is possible Certain groups might be more likely to develop a severe illness from H1N1 infection. Sometimes bacterial infections may occur at the same time as or after infection with influenza viruses and lead to pneumonias, ear infections, or sinus infections. How Flu Spreads The main way that influenza viruses spread is through respiratory droplets of coughs and sneezes. This can happen when someone with the infection coughs or sneezes and the particles fly through the air and land on other people and surfaces. If the person covers their mouth and nose with their hand but does not wash their hands immediately, then these germs are passed onto the next object that they touch. People with Influenza A or suspected H1N1 (swine flu) who are cared for at home should: Check with their doctor about any special care that they might need if they are or have a health condition such as diabetes, heart disease, asthma or emphysema. Also, limit caregiver to one (if possible). women or those with chronic health conditions should not take care of the flu patient unless necessary. Check with their doctor about whether or not medications are needed that may lessen the symptoms of the flu. Stay at home until 24 hours fever free without the use of fever reducing medication. Get plenty of rest and avoid other healthy people in your home. Drink plenty of clear liquids to keep from getting dehydrated. Take medications like Tylenol (Acetaminophen), Advil/Motrin/Nuprin ( Ibuprofen) or Aleve (Naproxen) for fevers and aches. All children under the age of 18 years of age should not take aspirin or products containing aspirin (e.g. Pepto Bismol), as this can cause a rare serious illness called Hilario Syndrome. Over the counter medications for flu and colds may help, but it is very important to follow the package directions. Remember that the medicine may help the symptoms, but it will not help prevent others from getting sick if they are around you. Cover coughs and sneezes using your bent arm. Clean hands with soap and water or an alcohol-based hand rub often, especially after using tissues to cough or sneeze. Encourage hand washing frequently for all people living in the home! The sick person should not have visitors other than caregivers. Encourage concerned loved ones to call instead of visit. Avoid close contact with others-do not go to work or school while sick. USE OF ACETAMINOPHEN (Tylenol): Acetaminophen may be taken for pain relief or fever control. It's much safer than aspirin, offering a wider range of "safe" dosages. It is safe during . Some brand names are Tylenol, Panadol, Datril, Anacin 3, Tempra, and Liquiprin. Acetaminophen can be repeated every four hours. The following are maximum recommended dosages: WEIGHT Dose Drops Elixir Chewable( 80mg) (LBS.) drprs=droppers tsp=teaspoon 6 40 mg 0.4 ml (1/2) 6-11 80 mg 0.8 ml (full) tsp 1 tab 12-16 120 mg 1 1/2 drprs 3/4 tsp 1 1/2 tabs 17-23 160 mg 2 drprs 1 tsp 2 tabs 24-30 240 mg 3 drprs 1 1/2 tsp 3 tabs 30-35 320 mg 2 tsp 4 tabs 36-41 360 mg 2 1/4 tsp 4 1/2 tabs 42-47 400 mg 2 1/2 tsp 5 tabs 48-53 480 mg 3 tsp 6 tabs 54-59 520 mg 3 1/4 tsp 6 1/2 tabs 60-64 560 mg 3 1/2 tsp 7 tabs 65-70 600 mg 3 3/4 tsp 7 1/2 tabs 71-76 640 mg 4 tsp 8 tabs 77-82 720 mg 4 1/2 tsp 9 tabs 83-88 800 mg 5 tsp 10 tabs >89 pounds or adults 650 mg to 900 mg Acetaminophen can be repeated every four hours. Maximum dose not to exceed 4000 mg a day. These maximum recommended dosages are slightly higher than the dosages written on the product container, but these dosages are very safe and below the toxic dosage for acetaminophen. FOLLOW-UP CARE: If you have been referred to a physician for follow-up care, call the physician s office for an appointment as you were instructed or within the next two days. If you experience worsening or a significant change in your symptoms, notify the physician immediately or return to the Emergency Department at any time for re-evaluation. Forms: Elevated Blood Pressure Referrals: [facility] [Outside] - Follow up as needed
[2017-10-10 20:42] LABS: ABSOLUTE LYMPHOCYTES (AUTO) 0.6 10^3/uL (0.5-4.7); ABSOLUTE MONOCYTES (AUTO) 0.8 10^3/uL (0.1-1.4); ABSOLUTE NEUT (AUTO) 5.6 10^3/uL (1.7-8.2); BASOPHILS % (AUTO) 0.2 % (0-2); EOSINOPHILS % (AUTO) 0.1 % (0-6); HEMATOCRIT 41.6 % (37.9-51.0); HEMOGLOBIN 13.9 g/dL (13.5-17.0); LYMPHOCYTES % (AUTO) 8.7 % (13-45); MEAN CORPUSCULAR HEMOGLOBIN 28.2 pg (27.0-33.4); MEAN CORPUSCULAR HGB CONC 33.5 g/dL (32.0-36.0); MEAN CORPUSCULAR VOLUME 84 fl (80-97); PLATELET COUNT 184 10^3/uL (150-450); RED BLOOD COUNT 4.95 10^6/uL (4.35-5.55); RED CELL DISTRIBUTION WIDTH 13.6 % (11.5-14.0); TOTAL CELLS COUNTED % (AUTO) 100 %
[2017-10-10 20:57] LABS: ALANINE AMINOTRANSFERASE 30 U/L (21-72); ALBUMIN 4.4 g/dL (3.5-5.0); ALKALINE PHOSPHATASE 144 U/L (38-126); ANION GAP 9 (5-19); ASPARTATE AMINO TRANSFERASE 24 U/L (17-59); BILIRUBIN,DIRECT 0.4 mg/dL (0.0-0.4); BILIRUBIN,TOTAL 0.4 mg/dL (0.2-1.3); BLOOD UREA NITROGEN 16 mg/dL (7-20); C-REACTIVE PROTEIN 19.7 mg/L (<10.0); CALCIUM 9.8 mg/dL (8.4-10.2); CARBON DIOXIDE 28 mmol/L (22-30); CHLORIDE 101 mmol/L (98-107); GLUCOSE 237 mg/dL (75-110); POTASSIUM 4.1 mmol/L (3.6-5.0); SODIUM 138.4 mmol/L (137-145); TOTAL PROTEIN 7.4 g/dL (6.3-8.2)
[2017-10-10 21:15] LABS: VENOUS BLOOD BASE EXCESS -2.3 mmol/L; VENOUS BLOOD PCO2 36.2 mmHg (35-63); VENOUS BLOOD PH 7.4 (7.30-7.42)
[2017-10-10 23:05] VITALS: BP 127/72
--- NOTE | 2017-10-11 09:26 | EKG REPORT ---
SEVERITY:- BORDERLINE ECG - SINUS TACHYCARDIA PROBABLE LEFT ATRIAL ABNORMALITY BORDERLINE T ABNORMALITIES, INFERIOR LEADS : Confirmed by: Ricardo Fox 11-Oct-2017 09:26:01
== END 2017-10-10 23:00 | disposition home or self-care (01) ==
LOC: ER 18:26
DX: R50.9 Fever, unspecified (principal); M79.1 Myalgia; R11.0 Nausea; R53.1 Weakness; E10.9 Type 1 diabetes mellitus without complications
CPT/HCPCS: 93005; 99284; 96360; 96361; 36415; 87040; 82962; 83605; 85025; 86140; 80053; 82803; 71045; 93010; J7030

== ENCOUNTER 2017-10-13 15:08 | Emergency (ER) | payer OTHER ==
[2017-10-13] MEDS ORDERED: NORMAL SALINE 1000 ML 1,000 ML IV PRN (15:57)
[2017-10-13 17:05] LABS: VENOUS BLOOD BASE EXCESS -2.9 mmol/L; VENOUS BLOOD HCO3 22.8 mmol/L (20-32); VENOUS BLOOD PCO2 42.7 mmHg (35-63); VENOUS BLOOD PH 7.35 (7.30-7.42)
[2017-10-13 17:09] LABS: ABSOLUTE LYMPHOCYTES (AUTO) 0.8 10^3/uL (0.5-4.7); ABSOLUTE MONOCYTES (AUTO) 0.4 10^3/uL (0.1-1.4); ABSOLUTE NEUT (AUTO) 2.5 10^3/uL (1.7-8.2); BASOPHILS % (AUTO) 0.4 % (0-2); HEMATOCRIT 44.7 % (37.9-51.0); HEMOGLOBIN 14.9 g/dL (13.5-17.0); LYMPHOCYTES % (AUTO) 21.9 % (13-45); MEAN CORPUSCULAR HEMOGLOBIN 27.9 pg (27.0-33.4); MEAN CORPUSCULAR HGB CONC 33.3 g/dL (32.0-36.0); MEAN CORPUSCULAR VOLUME 84 fl (80-97); MONOCYTES % (AUTO) 10.9 % (3-13); PLATELET COUNT 173 10^3/uL (150-450); RED BLOOD COUNT 5.34 10^6/uL (4.35-5.55); RED CELL DISTRIBUTION WIDTH 13.4 % (11.5-14.0); SEGMENTED NEUTROPHILS % (AUTO) 66.8 % (42-78); TOTAL CELLS COUNTED % (AUTO) 100 %; WHITE BLOOD COUNT 3.8 10^3/uL (4.0-10.5)
[2017-10-13 17:40] LABS: A TYPE INFLUENZA AG NEGATIVE (NEGATIVE); B INFLUENZA AG NEGATIVE (NEGATIVE)
[2017-10-13 18:12] LABS: APPEARANCE,URINE CLEAR; BILIRUBIN,URINE NEGATIVE (NEGATIVE); COLOR,URINE YELLOW; GLUCOSE, URINE >=500 mg/dL (NEGATIVE); KETONES,URINE 80 mg/dL (NEGATIVE); LEUKOCYTE ESTERASE,URINE NEGATIVE (NEGATIVE); NITRITE,URINE NEGATIVE (NEGATIVE); PROTEIN,URINE 30 mg/dL (NEGATIVE); URINE SPECIFIC GRAVITY 1.025; UROBILINOGEN,URINE NEGATIVE mg/dL (<2.0)
[2017-10-13 18:46] LABS: ALANINE AMINOTRANSFERASE 37 U/L (21-72); ALBUMIN 4.2 g/dL (3.5-5.0); ALKALINE PHOSPHATASE 106 U/L (38-126); ANION GAP 16 (5-19); ASPARTATE AMINO TRANSFERASE 36 U/L (17-59); BILIRUBIN,DIRECT 0.3 mg/dL (0.0-0.4); BILIRUBIN,TOTAL 0.3 mg/dL (0.2-1.3); BLOOD UREA NITROGEN 17 mg/dL (7-20); CALCIUM 9.3 mg/dL (8.4-10.2); CARBON DIOXIDE 23 mmol/L (22-30); CHLORIDE 103 mmol/L (98-107); GLUCOSE 94 mg/dL (75-110); POTASSIUM 4.5 mmol/L (3.6-5.0); SODIUM 141.6 mmol/L (137-145); TOTAL PROTEIN 6.7 g/dL (6.3-8.2)
[2017-10-13 19:03] VITALS: BP 134/84
--- NOTE | 2017-10-13 19:03 | ER Document Report ---
ED General - General Chief Complaint: High Blood Sugar Stated Complaint: COUGH,CONGESTION,FEVER Time Seen by Provider: 10/13/17 15:52 Notes: The patient is a 22-year-old male, past medical history type 1 diabetes, presents with 4 days of body aches, intermittent fevers, cough, nasal congestion and generalized fatigue. He was seen in the ER 3 days ago and was not in DKA. His is concerned that patient is in DKA because his blood sugar at home was over 500. He was given 2 doses of 20 units of insulin prior to arrival. Patient is having some nausea, but denies vomiting, urinary symptoms, cough, chest pain, neck stiffness, headaches, recent travel or rash. TRAVEL OUTSIDE OF THE [place] IN LAST 30 DAYS: No - Related Data Allergies/Adverse Reactions: shellfish derived Allergy (Severe, Verified 10/10/17 18:34) Anaphylaxis Past Medical History - General Information source: Patient, Relative - Social History Smoking Status: Unknown if Ever Smoked Chew tobacco use (# tins/day): No Drug Abuse: None Family History: DM Patient has suicidal ideation: No Patient has homicidal ideation: No - Past Medical History Cardiac Medical History: Denies: Hx Heart Murmur Endocrine Medical History: Reports: Hx Diabetes Mellitus Type 1 Renal/ Medical History: Denies: Hx Peritoneal Dialysis Psychiatric Medical History: Denies: Hx Depression - Immunizations Immunizations up to date: Yes Hx Diphtheria, Pertussis, Tetanus Vaccination: Yes Review of Systems - Review of Systems Notes: REVIEW OF SYSTEMS: CONSTITUTIONAL: +fevers, +chills EENT: -eye pain, -difficulty swallowing, +nasal congestion CARDIOVASCULAR: -chest pain, -syncope. RESPIRATORY: +cough, -SOB GASTROINTESTINAL: -abdominal pain, +nausea, -vomiting, -diarrhea GENITOURINARY: -dysuria, -hematuria MUSCULOSKELETAL: -back pain, -neck pain SKIN: -rash or skin lesions. HEMATOLOGIC: -easy bruising or bleeding. LYMPHATIC: -swollen, enlarged glands. NEUROLOGICAL: -altered mental status or loss of consciousness, -headache, - neurologic symptoms PSYCHIATRIC: -anxiety, -depression. ALL OTHER SYSTEMS REVIEWED AND NEGATIVE. Physical Exam - Vital signs Vitals: Temp Pulse Resp BP Pulse Ox 98.5 F 113 H 24 H 136/85 H 97 10/13/17 15:15 10/13/17 15:15 10/13/17 15:15 10/13/17 15:15 10/13/17 15:15 - Notes Notes: PHYSICAL EXAMINATION: GENERAL: No acute distress. HEAD: Atraumatic, normocephalic. EYES: Pupils equal round and reactive to light, extraocular movements intact, sclera anicteric, conjunctiva are normal. ENT: nares patent, oropharynx clear without exudates. Moist mucous membranes. NECK: Normal range of motion, supple without lymphadenopathy LUNGS: Breath sounds clear to auscultation bilaterally and equal. No wheezes rales or rhonchi. HEART: Regular rate and rhythm without murmurs ABDOMEN: Soft, nontender, normoactive bowel sounds. No guarding, no rebound. No masses appreciated. EXTREMITIES: Normal range of motion, no pitting or edema. No cyanosis. NEUROLOGICAL: Moving all 4 extremities. SKIN: Warm, Dry, normal turgor, no rashes or lesions noted. Course - Re-evaluation Re-evalutation: Patient with nasal congestion, dry cough, intermittent fevers and nausea, consistent with a generalized viral illness. Flu test is negative. There are no signs of DKA on his blood work and his vital signs are completely normal after he was given IV fluids. Rest of blood work is completely unremarkable. Patient does not have a fever, leukocytosis or neck stiffness to suggest bacterial meningitis. Spoke to family extensively about normal blood work and normal vital signs and tried to reassure them about their concerns. Instructed them about symptomatic treatment for his viral illness and making sure that he is staying hydrated. Given return precautions and they understand. Patient presents with multiple vague complaints that did not appear to be concerning for any acute life-threatening pathology. Vitals are within normal limits at time of discharge. Physical examination is unremarkable. Patient has tolerated oral intake without difficulty. At this time, based on the reassuring evaluation, I do not suspect an acute OK, pulmonary embolus, aortic dissection, acute intra-abdominal pathology, stroke, or sepsis. Will discharge with return precautions and follow-up recommendations. Verbal discharge instructions given a the bedside and opportunity for questions given. Medication warnings reviewed. Patient is in agreement with this plan and has verbalized understanding of return precautions and the need for primary care follow-up in the next 24-72 hours. - Vital Signs Vital signs: Temp Pulse Resp BP Pulse Ox 98.5 F 113 H 19 134/84 H 100 10/13/17 15:15 10/13/17 15:15 10/13/17 19:00 10/13/17 19:00 10/13/17 19:00 - Laboratory Result Diagrams: 10/13/17 16:40 10/13/17 18:20 Laboratory results interpreted by me: 10/13/17 10/13/17 10/13/17 16:39 16:40 17:55 WBC 3.8 L POC Glucose 189 H Urine Protein 30 H Urine Glucose (UA) >=500 H Urine Ketones 80 H Discharge - Discharge Clinical Impression: Viral illness Condition: Stable Disposition: HOME, SELF-CARE Additional Instructions: There are absolutely no signs of DKA today on your evaluation. Use Zofran and stay hydrated. INFLUENZA: The physician feels that you have influenza -- the "flu". Influenza is an infection caused by a virus. Symptoms include generalized aching, fever, headache, dry cough, and fatigue. Some patients with the flu also have nausea, vomiting, and diarrhea. The fever and aches usually last two to four days, with the cough persisting another one to two weeks. Treatment of the flu, for the most part, is simply treatment of symptoms. Rest, drink plenty of fluids, and use acetaminophen for fever and aches. Do not take aspirin. There is an anti-viral medication, called Tamiflu, which may help in "type A" flu, but it's not helpful in every case of flu, and only works if started within the first 24 - 48 hours of the start of symptoms. The physician will determine whether this medication can help you. To prevent spread of the virus, use good handwashing. Shared toys should be cleaned with disinfectant. Clean the toilets, sinks, and counter surfaces in bathrooms. Launder clothing in hot water. What are conditions that should receive medical attention? The development of difficulty breathing. Lip color changes to blue or purple. Persistent vomiting and unable to keep liquids down with signs of dehydration such as: dizziness when standing, unable to urinate, or if child/infant is crying no tears are noticed. Is less responsive than normal or becomes confused. How do I decrease the spread of flu in my home? Taking care of the sick patient at home: Keep the sick person in a room separate from the common areas of the house. Keep the "sickroom" door closed. If the person with the flu needs to leave the home, they should cover their nose/mouth when coughing or sneezing and wear a disposable (surgical) mask if available. These masks may be available at your local pharmacy, medical supply and hardware store. If the sick person is in common areas of the house, have them wear a surgical mask. If possible, have the sick person use a separate bathroom that should be cleaned daily with a household disinfectant. If you are the caregiver: Avoid being face to face with the sick adult person as much as possible. Try to stay at least 6 feet away and wear a disposable surgical mask when possible. When holding small children who are sick, place their chin on your shoulder so that they will not cough in your face. Wash your hands after you touch the sick person or handle their tissues and laundry. Wear a mask if you leave home, as you may be infected from taking care of someone and not know it yet. Watch yourself and others in the home for flu symptoms and contact your doctor if symptoms occur. NOTE: Antiviral medication used to reduce the symptoms of the flu works only if taken within 48 hours, and best within 24 hours of symptom onset. Household Cleaning, laundry and waste disposal: Tissues and other disposable items used by the sick person should be thrown away in the trash. Wash your hands after touching these used items. No special waste disposal is required. Keep surfaces (especially bedside tables, bathroom surfaces, and toys for children) clean by wiping them down with a safe household disinfectant according to the directions on the product label. Per Center for Disease Control advice, most people will not receive testing to confirm flu. Also based on the person's health history and onset of symptoms, not all patients will receive prescriptions for antiviral medications. If you have questions related to this, please ask your healthcare provider. For more information, you can call the Centers for Disease Control and Prevention (CDC) Hotline at 1-145-NPU-INFO This line is available in [place] and [place], 24 hours a day, 7 days a week. Or www.[employer] or www.cdc.gov Flu-Like Illness Home Instructions: The influenza virus infection can cause a wide rage of symptoms, including: Fever, cough, sore throat, body aches, headaches, chills, fatigue, with some patients reporting diarrhea and vomiting Like seasonal influenza A, H1N1 ("swine flu")in humans can vary in severity from mild to severe Severe illness with pneumonia, respiratory failure and even is possible Certain groups might be more likely to develop a severe illness from H1N1 infection. Sometimes bacterial infections may occur at the same time as or after infection with influenza viruses and lead to pneumonias, ear infections, or sinus infections. How Flu Spreads The main way that influenza viruses spread is through respiratory droplets of coughs and sneezes. This can happen when someone with the infection coughs or sneezes and the particles fly through the air and land on other people and surfaces. If the person covers their mouth and nose with their hand but does not wash their hands immediately, then these germs are passed onto the next object that they touch. People with Influenza A or suspected H1N1 (swine flu) who are cared for at home should: Check with their doctor about any special care that they might need if they are or have a health condition such as diabetes, heart disease, asthma or emphysema. Also, limit caregiver to one (if possible). women or those with chronic health conditions should not take care of the flu patient unless necessary. Check with their doctor about whether or not medications are needed that may lessen the symptoms of the flu. Stay at home until 24 hours fever free without the use of fever reducing medication. Get plenty of rest and avoid other healthy people in your home. Drink plenty of clear liquids to keep from getting dehydrated. Take medications like Tylenol (Acetaminophen), Advil/Motrin/Nuprin ( Ibuprofen) or Aleve (Naproxen) for fevers and aches. All children under the age of 18 years of age should not take aspirin or products containing aspirin (e.g. Pepto Bismol), as this can cause a rare serious illness called Hilario Syndrome. Over the counter medications for flu and colds may help, but it is very important to follow the package directions. Remember that the medicine may help the symptoms, but it will not help prevent others from getting sick if they are around you. Cover coughs and sneezes using your bent arm. Clean hands with soap and water or an alcohol-based hand rub often, especially after using tissues to cough or sneeze. Encourage hand washing frequently for all people living in the home! The sick person should not have visitors other than caregivers. Encourage concerned loved ones to call instead of visit. Avoid close contact with others-do not go to work or school while sick. USE OF ACETAMINOPHEN (Tylenol): Acetaminophen may be taken for pain relief or fever control. It's much safer than aspirin, offering a wider range of "safe" dosages. It is safe during . Some brand names are Tylenol, Panadol, Datril, Anacin 3, Tempra, and Liquiprin. Acetaminophen can be repeated every four hours. The following are maximum recommended dosages: WEIGHT Dose Drops Elixir Chewable( 80mg) (LBS.) drprs=droppers tsp=teaspoon 6 40 mg 0.4 ml (1/2) 6-11 80 mg 0.8 ml (full) tsp 1 tab 12-16 120 mg 1 1/2 drprs 3/4 tsp 1 1/2 tabs 17-23 160 mg 2 drprs 1 tsp 2 tabs 24-30 240 mg 3 drprs 1 1/2 tsp 3 tabs 30-35 320 mg 2 tsp 4 tabs 36-41 360 mg 2 1/4 tsp 4 1/2 tabs 42-47 400 mg 2 1/2 tsp 5 tabs 48-53 480 mg 3 tsp 6 tabs 54-59 520 mg 3 1/4 tsp 6 1/2 tabs 60-64 560 mg 3 1/2 tsp 7 tabs 65-70 600 mg 3 3/4 tsp 7 1/2 tabs 71-76 640 mg 4 tsp 8 tabs 77-82 720 mg 4 1/2 tsp 9 tabs 83-88 800 mg 5 tsp 10 tabs >89 pounds or adults 650 mg to 900 mg Acetaminophen can be repeated every four hours. Maximum dose not to exceed 4000 mg a day. These maximum recommended dosages are slightly higher than the dosages written on the product container, but these dosages are very safe and below the toxic dosage for acetaminophen. FOLLOW-UP CARE: If you have been referred to a physician for follow-up care, call the physician s office for an appointment as you were instructed or within the next two days. If you experience worsening or a significant change in your symptoms, notify the physician immediately or return to the Emergency Department at any time for re-evaluation. Prescriptions: Ondansetron [Zofran Odt 4 mg Tablet] 1 - 2 tab PO Q4H PRN #15 tab.rapdis PRN Reason: For Nausea/Vomiting Forms: Elevated Blood Pressure, Return to Work Referrals: [facility] [Outside] - Follow up as needed
== END 2017-10-13 19:23 | disposition home or self-care (01) ==
LOC: ER 15:08
DX: B34.9 Viral infection, unspecified (principal); E10.9 Type 1 diabetes mellitus without complications; R05 Cough; R09.81 Nasal congestion; R53.83 Other fatigue; R11.0 Nausea; Z87.892 Personal history of anaphylaxis; Z91.013 Allergy to seafood
CPT/HCPCS: 99283; 96360; 36415; 82962; 85025; 80053; 81001; 82803; 87804; J7030

== ENCOUNTER 2018-09-28 21:52 | Inpatient (IN) | payer BC, OTHER ==
[2018-09-28] MEDS ORDERED: NORMAL SALINE 1000 ML 1,000 ML IV ONE ×2 (22:00→22:56)
[2018-09-28 22:23] LABS: ABSOLUTE EOSINOPHILS # (AUTO) 0.2 10^3/uL (0.0-0.6); ABSOLUTE LYMPHOCYTES (AUTO) 1.6 10^3/uL (0.5-4.7); ABSOLUTE MONOCYTES (AUTO) 0.5 10^3/uL (0.1-1.4); ABSOLUTE NEUT (AUTO) 8.1 10^3/uL (1.7-8.2); BASOPHILS % (AUTO) 0.1 % (0-2); EOSINOPHILS % (AUTO) 1.8 % (0-6); HEMATOCRIT 44.1 % (37.9-51.0); HEMOGLOBIN 14.7 g/dL (13.5-17.0); LYMPHOCYTES % (AUTO) 15.5 % (13-45); MEAN CORPUSCULAR HEMOGLOBIN 28.1 pg (27.0-33.4); MEAN CORPUSCULAR HGB CONC 33.5 g/dL (32.0-36.0); MEAN CORPUSCULAR VOLUME 84 fl (80-97); MONOCYTES % (AUTO) 4.5 % (3-13); PLATELET COUNT 242 10^3/uL (150-450); RED BLOOD COUNT 5.24 10^6/uL (4.35-5.55); RED CELL DISTRIBUTION WIDTH 13.6 % (11.5-14.0); SEGMENTED NEUTROPHILS % (AUTO) 78.1 % (42-78); TOTAL CELLS COUNTED % (AUTO) 100 %; WHITE BLOOD COUNT 10.4 10^3/uL (4.0-10.5)
[2018-09-28] MEDS ORDERED: MAG HYDROX/AL HYDROX/SIMETH SUSP 30 ML UDCUP PO ONE (22:23)
[2018-09-28] MEDS ORDERED: FAMOTIDINE INJ/PF 20 MG/2 ML SDV IV ONE (22:23)
[2018-09-28] MEDS ORDERED: METOCLOPRAMIDE HCL ORAL SOLN 10 MG/10 ML UDCUP PO ONE (22:23)
[2018-09-28] MEDS ORDERED: LIDOCAINE 2% VISCOUS SOLN 20 ML UDCUP PO ONE (22:23)
--- NOTE | 2018-09-28 22:28 | ER Document Report ---
ED General - General Stated Complaint: HYPERGLYCEMIC Time Seen by Provider: 09/28/18 22:05 Mode of Arrival: Medic Information source: Law [employer] Notes: 23-year-old's male brought to the emergency department by EMS for hyperglycemia. Patient states that he fell asleep on the couch this evening and when he woke up he felt lightheaded and was diaphoretic. Patient has a history of diabetes and so he checked his blood sugar and found it to be 496. Patient states that he then called EMS. While waiting for them to arrive, he gave himself 20U of insulin. Patient states that he is on Novolin and Lantus. He is been taking them as directed. Patient states that he does feel dehydrated. He is having associated nausea and epigastric abdominal pain. He states that he took Motrin around 7 PM for his abdominal discomfort. He states that the pain has eased up. He describes it as an aching sensation starting in the epigastric area with radiation down around the umbilical area. No exacerbating factors. He denies any vomiting, diarrhea, constipation. Patient states that he is also having some dental pain to tooth #19. He has a history of a broken tooth and states that it has been painful for the last day and a half. He denies any fever. TRAVEL OUTSIDE OF THE [place] IN LAST 30 DAYS: No - HPI Onset: Just prior to arrival Onset/Duration: Sudden Quality of pain: Achy Severity: Mild Pain Level: Denies Associated symptoms: Nausea Exacerbated by: Denies Relieved by: Other - motrin Similar symptoms previously: Yes Recently seen / treated by doctor: No - Related Data Allergies/Adverse Reactions: shellfish derived Allergy (Severe, Verified 10/10/17 18:34) Anaphylaxis Past Medical History - General Information source: Patient - Social History Smoking Status: Former Smoker Family History: DM - Past Medical History Cardiac Medical History: Denies: Hx Heart Murmur Endocrine Medical History: Reports: Hx Diabetes Mellitus Type 1 Renal/ Medical History: Denies: Hx Peritoneal Dialysis Psychiatric Medical History: Denies: Hx Depression - Immunizations Immunizations up to date: Yes Hx Diphtheria, Pertussis, Tetanus Vaccination: Yes Review of Systems - Review of Systems Constitutional: Chills EENT: Dental problem Cardiovascular: No symptoms reported Respiratory: No symptoms reported Gastrointestinal: Abdominal pain, Nausea Genitourinary: No symptoms reported Musculoskeletal: No symptoms reported Skin: No symptoms reported Hematologic/Lymphatic: No symptoms reported Neurological/Psychological: No symptoms reported -: Yes All other systems reviewed and negative Physical Exam - Vital signs Vitals: Pulse Ox 100 09/28/18 21:55 - Notes Notes: PHYSICAL EXAMINATION: GENERAL: Well-appearing, well-nourished and in no acute distress. HEAD: Atraumatic, normocephalic. EYES: Pupils equal round and reactive to light, extraocular movements intact, sclera anicteric, conjunctiva are normal. ENT: Nares patent, oropharynx clear without exudates. Tooth number 19 broken. No abscess appreciated. NECK: Normal range of motion, supple without lymphadenopathy LUNGS: Breath sounds clear to auscultation bilaterally and equal. No wheezes rales or rhonchi. HEART: Tachycardia. S1S2. ABDOMEN: Soft, epigastric tenderness to palpation. Nondistended. No guarding, no rebound. Musculoskeletal: Normal range of motion, no pitting or edema. No cyanosis. NEUROLOGICAL: Cranial nerves grossly intact. Normal speech. Normal sensory, motor exams PSYCH: Normal mood, normal affect. SKIN: Warm, Dry, normal turgor, no rashes or lesions noted. Course - Re-evaluation Re-evalutation: 09/28/18 23:09 EKG: Ventricular rate 101, NE interval 172, castration 84, QTc 431, sinus tachycardia. No ST segment elevation. 09/28/18 23:50 Labs obtained. Blood sugar reported at 547. Patient's pH is 7.33, PCO2 32, bicarb 16. Patient has an anion gap of 23. Patient receiving IV fluids. A second liter of fluids ordered. Patient's blood sugar was rechecked at bedside. It is currently at 269. Patient took 20 units of insulin prior to EMS arrival. Insulin bolus discontinued. I will start an insulin drip on the patient. Abdominal x-ray obtained. Ileus versus partial small bowel obstruction appreciated. Patient was given a GI cocktail for his abdominal pain. On reevaluation, patient states that his pain is resolving. No tenderness to palpation, rebound, guarding currently. Patient has normal active bowel sounds. I contacted the hospitalist for admission. He is agreeable with the patient being admitted to a telemetry bed. 09/28/18 23:52 - Vital Signs Vital signs: Temp Pulse Resp BP Pulse Ox 98.6 F 94 18 136/73 H 100 09/29/18 03:00 09/29/18 03:00 09/29/18 03:00 09/29/18 03:00 09/29/18 03:00 - Laboratory Result Diagrams: 09/28/18 22:05 09/29/18 01:20 Laboratory results interpreted by me: 09/28/18 09/28/18 09/28/18 22:05 22:05 22:05 Seg Neutrophils % 78.1 H VBG pCO2 VBG HCO3 Sodium 135.5 L Chloride 97 L Carbon Dioxide 16 L Anion Gap 23 H Glucose 547 H* POC Glucose Hemoglobin A1c % Calcium 10.3 H Alkaline Phosphatase 201 H Albumin 5.1 H Lipase 18.2 L Urine Glucose (UA) Urine Ketones 09/28/18 09/28/18 09/28/18 22:05 22:30 23:29 Seg Neutrophils % VBG pCO2 32.4 L VBG HCO3 16.8 L Sodium Chloride Carbon Dioxide Anion Gap Glucose POC Glucose 269 H Hemoglobin A1c % 11.2 H Calcium Alkaline Phosphatase Albumin Lipase Urine Glucose (UA) Urine Ketones 09/28/18 23:58 Seg Neutrophils % VBG pCO2 VBG HCO3 Sodium Chloride Carbon Dioxide Anion Gap Glucose POC Glucose Hemoglobin A1c % Calcium Alkaline Phosphatase Albumin Lipase Urine Glucose (UA) >=500 H Urine Ketones 80 H Discharge - Discharge Clinical Impression: Hyperglycemia Diabetes mellitus type 1 Qualifiers: Diabetes mellitus complication status: with unspecified complications Qualified Code(s): E10.8 - Type 1 diabetes mellitus with unspecified complications Condition: Stable Disposition: ADMITTED INPATIENT Admitting Provider: Hospitalist Unit Admitted: Telemetry
[2018-09-28 22:40] LABS: ALANINE AMINOTRANSFERASE 24 U/L (21-72); ALBUMIN 5.1 g/dL (3.5-5.0); ALKALINE PHOSPHATASE 201 U/L (38-126); ASPARTATE AMINO TRANSFERASE 17 U/L (17-59); BILIRUBIN,DIRECT 0.3 mg/dL (0.0-0.4); BLOOD UREA NITROGEN 20 mg/dL (7-20); CALCIUM 10.3 mg/dL (8.4-10.2); TOTAL PROTEIN 7.9 g/dL (6.3-8.2)
[2018-09-28 22:44] LABS: VENOUS BLOOD BASE EXCESS -7.9 mmol/L; VENOUS BLOOD HCO3 16.8 mmol/L (20-32); VENOUS BLOOD PCO2 32.4 mmHg (35-63); VENOUS BLOOD PH 7.33 (7.30-7.42)
[2018-09-28 22:45] LABS: CARBON DIOXIDE 16 mmol/L (22-30); CHLORIDE 97 mmol/L (98-107); SODIUM 135.5 mmol/L (137-145)
[2018-09-28 22:48] LABS: ANION GAP 23 (5-19)
[2018-09-28 22:50] LABS: GLUCOSE 547 mg/dL (75-110)
[2018-09-28] MEDS ORDERED: NORMAL SALINE 100 ML with INSULIN REGULAR, HUMAN 100 UNIT IV PRN ×4 (22:54→23:28)
[2018-09-28] MEDS ORDERED: INSULIN REG, HUMAN 100 UNIT/ML 3 ML VIAL (PYX) IV ONE (22:54)
[2018-09-28] MEDS ORDERED: LEVOFLOXACIN 750 MG/D5W RTU 750 MG/150 ML RTUPB IV ONE (23:00)
[2018-09-28] MEDS ORDERED: INSULIN REG, HUMAN 100 UNIT/ML 3 ML VIAL (PYX) ONE (23:32)
--- NOTE | 2018-09-28 23:32 | RADIOLOGY REPORT (SQ) ---
EXAM DESCRIPTION: XR ABDOMEN SUPINE AND ERECT WITH CHEST (ABD ACUTE SERIES) COMPLETED DATE/TME: 09/28/2018 22:22 CLINICAL HISTORY: 23 years, Male, epigastric abdominal pain COMPARISON: None. NUMBER OF VIEWS: TECHNIQUE: LIMITATIONS: None. FINDINGS: There are several loops of top normal to mildly dilated small bowel in the mid to lower abdomen, greater toward the right side, compatible with either early or partial obstruction or ileus. No free air. The chest is unremarkable. IMPRESSION: Early or partial small bowel obstruction versus small bowel ileus. copyright 2010 [employer]- All Rights Reserved
[2018-09-28] MEDS ORDERED: GLUCAGON,HUMAN RECOMB 1 MG INJ IM PRN (23:43)
[2018-09-28] MEDS ORDERED: DEXTROSE 50%-WATER 25 GM/50 ML DISP.SYRIN IV PRN ×2 (23:43)
[2018-09-28] MEDS ORDERED: DEXTROSE 40% GEL 15 GM TUBE PO PRN ×2 (23:43)
[2018-09-28] MEDS ORDERED: FENTANYL CITRATE INJ/PF 100 MCG/2 ML AMPUL IV ONE (23:45)
[2018-09-28] MEDS ORDERED: NORMAL SALINE 1000 ML 1,000 ML IV PRN (23:45)
[2018-09-29 00:10] LABS: APPEARANCE,URINE CLEAR; BILIRUBIN,URINE NEGATIVE (NEGATIVE); COLOR,URINE STRAW; GLUCOSE, URINE >=500 mg/dL (NEGATIVE); KETONES,URINE 80 mg/dL (NEGATIVE); LEUKOCYTE ESTERASE,URINE NEGATIVE (NEGATIVE); NITRITE,URINE NEGATIVE (NEGATIVE); PROTEIN,URINE NEGATIVE (NEGATIVE); URINE SPECIFIC GRAVITY 1.024; UROBILINOGEN,URINE NEGATIVE mg/dL (<2.0)
[2018-09-29 01:49] LABS: ANION GAP 9 (5-19); BLOOD UREA NITROGEN 17 mg/dL (7-20); CALCIUM 8.9 mg/dL (8.4-10.2); CARBON DIOXIDE 23 mmol/L (22-30); CHLORIDE 106 mmol/L (98-107); GLUCOSE 226 mg/dL (75-110); POTASSIUM 4.1 mmol/L (3.6-5.0)
[2018-09-29] MEDS ORDERED: POTASSI CL 20 MEQ/D5-1/2NS 1L 1,000 ML IV ONE (01:54)
[2018-09-29] MEDS: KETOROLAC TROMETHAMINE INJ/PF 30 MG/1 ML SDV IV PRN ×3 (02:30→21:53)
[2018-09-29] MEDS ORDERED: NORMAL SALINE 100 ML with INSULIN REGULAR, HUMAN 100 UNIT IV PRN ×2 (03:15)
[2018-09-29] MEDS: HEPARIN SOD (PORCINE) 5,000 UNIT/ML 1 ML SYRINGE SUBCUT SCH ×3 (05:09→22:14)
[2018-09-29] MEDS ORDERED: INSULIN GLARGINE,HUM.REC.ANLOG 300 UNIT/3 ML INSULN.PEN SUBCUT ONE ×2 (05:15→06:16)
--- NOTE | 2018-09-29 05:36 | PDOC H&P ---
History of Present Illness Admission Date/PCP: 09/29/18 00:08 Patient complains of: Abdominal pain and hyperglycemia History of Present Illness: CEHPE WALKER is a 23 year old male with a history of insulin-dependent diabetes and dental caries without abscess. Patient presents with 12 hours of uncontrolled hyperglycemia developing abdominal pain and nausea recognizing symptoms of previous DKA he administers 20 units of insulin and because EMS. Patient admits inconsistent use of insulin as he is unable to afford. Previous episode of DKA approximately 1 year ago. In the emergency room is found to have anion gap acidosis with hyperkalemia. He started on normal saline and insulin then referred to the hospitalist for admission. Past Medical History Cardiac Medical History: Denies: Heart Murmur Endocrine Medical History: Reports: Diabetes Mellitus Type 1 Psychiatric Medical History: Denies: Depression Past Surgical History Past Surgical History: Reports: None Social History Information Source: Patient Lives with: Alone Smoking Status: Former Smoker Frequency of Alcohol Use: None Hx Recreational Drug Use: No Drugs: None Hx Prescription Drug Abuse: No - Advance Directive Resuscitation Status: Full Code Family History Family History: DM Parental Family History Reviewed: Yes Children Family History Reviewed: Yes Sibling(s) Family History Reviewed.: Yes Medication/Allergy Home Medications: Insulin Aspart [Novolog Flexpen] 0 unit SUBCUT .SLD SCALE #1 pen 02/27/17 Insulin Glargine,Hum.rec.anlog [Lantus] 36 unit SQ QHS 30 Days vial 02/27/17 Ondansetron [Zofran Odt 4 mg Tablet] 1 - 2 tab PO Q4H PRN #15 tab.rapdis 10/13 Allergies/Adverse Reactions: shellfish derived Allergy (Severe, Verified 10/10/17 18:34) Anaphylaxis Review of Systems Constitutional: PRESENT: as per HPI, anorexia, fatigue. ABSENT: chills, fever(s), headache(s), weight gain, weight loss Eyes: ABSENT: visual disturbances Ears: ABSENT: hearing changes Cardiovascular: PRESENT: as per HPI. ABSENT: chest pain, dyspnea on exertion, edema, orthropnea, palpitations Respiratory: PRESENT: as per HPI. ABSENT: cough, hemoptysis Gastrointestinal: ABSENT: abdominal pain, constipation, diarrhea, hematemesis, hematochezia, nausea, vomiting Genitourinary: ABSENT: dysuria, hematuria Musculoskeletal: ABSENT: joint swelling Integumentary: ABSENT: rash, wounds Neurological: ABSENT: abnormal gait, abnormal speech, confusion, dizziness, focal weakness, syncope Psychiatric: ABSENT: anxiety, depression, homidical ideation, suicidal ideation Endocrine: ABSENT: cold intolerance, heat intolerance, polydipsia, polyuria Hematologic/Lymphatic: ABSENT: easy bleeding, easy bruising Physical Exam Vital Signs: Temp Pulse Resp BP Pulse Ox 98.6 F 94 18 136/73 H 100 09/29/18 03:00 09/29/18 03:00 09/29/18 03:00 09/29/18 03:00 09/29/18 03:00 Intake & Output 09/27/18 09/28/18 09/29/18 11:59 11:59 11:59 Intake Total 3268 Output Total 900 Balance 2368 Weight 72.6 kg General appearance: PRESENT: cooperative, severe distress, thin. ABSENT: dishe veled Head exam: PRESENT: atraumatic, normocephalic Eye exam: PRESENT: conjunctiva pink, EOMI, PERRLA. ABSENT: scleral icterus Ear exam: PRESENT: normal external ear exam Mouth exam: PRESENT: dry mucosa, tongue midline Teeth exam: PRESENT: dental caries, poor dentation. ABSENT: dental tenderness Neck exam: ABSENT: carotid bruit, JVD, lymphadenopathy, thyromegaly Respiratory exam: PRESENT: clear to auscultation carrie, tachypnea. ABSENT: rales, rhonchi, wheezes Cardiovascular exam: PRESENT: RRR. ABSENT: diastolic murmur, rubs, systolic murmur Pulses: PRESENT: normal dorsalis pedis pul Vascular exam: PRESENT: normal capillary refill GI/Abdominal exam: PRESENT: normal bowel sounds, soft. ABSENT: distended, guarding, mass, organolmegaly, rebound, tenderness Rectal exam: PRESENT: deferred Extremities exam: PRESENT: full ROM. ABSENT: calf tenderness, clubbing, pedal edema Neurological exam: PRESENT: alert, awake, oriented to person, oriented to place, oriented to time, oriented to situation, CN II-XII grossly intact. ABSENT: motor sensory deficit Psychiatric exam: PRESENT: appropriate affect, normal mood. ABSENT: homicidal ideation, suicidal ideation Skin exam: PRESENT: dry, intact, warm. ABSENT: cyanosis, rash Results Laboratory Results: 09/28/18 22:05 09/29/18 01:20 09/28/18 09/28/18 09/28/18 22:05 22:05 22:05 WBC 10.4 RBC 5.24 Hgb 14.7 Hct 44.1 MCV 84 MCH 28.1 MCHC 33.5 RDW 13.6 Plt Count 242 Seg Neutrophils % 78.1 H Lymphocytes % 15.5 Monocytes % 4.5 Eosinophils % 1.8 Basophils % 0.1 Absolute Neutrophils 8.1 Absolute Lymphocytes 1.6 Absolute Monocytes 0.5 Absolute Eosinophils 0.2 Absolute Basophils 0.0 VBG pH Cancelled VBG pCO2 Cancelled VBG HCO3 Cancelled VBG Base Excess Cancelled Sodium 135.5 L Potassium 5.0 Chloride 97 L Carbon Dioxide 16 L Anion Gap 23 H BUN 20 Creatinine 1.04 Est GFR ( Amer) > 60 Est GFR (Non-Af Amer) > 60 Glucose 547 H* Calcium 10.3 H Total Bilirubin 1.0 AST 17 ALT 24 Alkaline Phosphatase 201 H Total Protein 7.9 Albumin 5.1 H Lipase Urine Color Urine Appearance Urine pH Ur Specific [place] Urine Protein Urine Glucose (UA) Urine Ketones Urine Blood Urine Nitrite Ur Leukocyte Esterase Urine WBC (Auto) Urine RBC (Auto) 09/28/18 09/28/18 09/28/18 22:05 22:30 23:58 WBC RBC Hgb Hct MCV MCH MCHC RDW Plt Count Seg Neutrophils % Lymphocytes % Monocytes % Eosinophils % Basophils % Absolute Neutrophils Absolute Lymphocytes Absolute Monocytes Absolute Eosinophils Absolute Basophils VBG pH 7.33 VBG pCO2 32.4 L VBG HCO3 16.8 L VBG Base Excess -7.9 Sodium Potassium Chloride Carbon Dioxide Anion Gap BUN Creatinine Est GFR ( Amer) Est GFR (Non-Af Amer) Glucose Calcium Total Bilirubin AST ALT Alkaline Phosphatase Total Protein Albumin Lipase 18.2 L Urine Color STRAW Urine Appearance CLEAR Urine pH 5.0 Ur Specific [place] 1.024 Urine Protein NEGATIVE Urine Glucose (UA) >=500 H Urine Ketones 80 H Urine Blood NEGATIVE Urine Nitrite NEGATIVE Ur Leukocyte Esterase NEGATIVE Urine WBC (Auto) 1 Urine RBC (Auto) 0 09/29/18 01:20 WBC RBC Hgb Hct MCV MCH MCHC RDW Plt Count Seg Neutrophils % Lymphocytes % Monocytes % Eosinophils % Basophils % Absolute Neutrophils Absolute Lymphocytes Absolute Monocytes Absolute Eosinophils Absolute Basophils VBG pH VBG pCO2 VBG HCO3 VBG Base Excess Sodium 138.0 Potassium 4.1 Chloride 106 Carbon Dioxide 23 Anion Gap 9 BUN 17 Creatinine 0.75 Est GFR ( Amer) > 60 Est GFR (Non-Af Amer) > 60 Glucose 226 H Calcium 8.9 Total Bilirubin AST ALT Alkaline Phosphatase Total Protein Albumin Lipase Urine Color Urine Appearance Urine pH Ur Specific [place] Urine Protein Urine Glucose (UA) Urine Ketones Urine Blood Urine Nitrite Ur Leukocyte Esterase Urine WBC (Auto) Urine RBC (Auto) 09/28/18 22:05 Troponin I < 0.012 Impressions: Acute Abdomen Series 09/28/18 22:22 IMPRESSION: Early or partial small bowel obstruction versus small bowel ileus. copyright 2010 [email or web address]- All Rights Reserved Assessment & Plan - Diagnosis (1) DKA (diabetic ketoacidoses) Qualifiers: Diabetes mellitus type: type 1 Diabetes mellitus complication detail: without coma Qualified Code(s): E10.10 - Type 1 diabetes mellitus with ke toacidosis without coma Is this a current diagnosis for this admission?: Yes Plan: Diabetic ketoacidosis patient has had some degree of polyuria polydipsia with nausea and uncontrolled hyperglycemia with supporting labs. Patient will receive IV fluids IV insulin serial chemistries every 6 hours for evaluation for electrolyte repletion. Continued evaluation for underlying cause if not found Patient will require diabetic education and consideration of mental health evaluation. (2) Dental caries Is this a current diagnosis for this admission?: Yes Plan: Trial empiric antibiotics, follow-up outpatient dentistry (3) Abdominal pain Is this a current diagnosis for this admission?: Yes Plan: Secondary to #1, symptom medic management IV fluid challenge (4) Hyperkalemia Is this a current diagnosis for this admission?: Yes Plan: Secondary to #1, anticipate correction with insulin. Follow-up chemistry - Time Time Spent: 50 to 70 Minutes - Inpatient Certification Medical Necessity: Need Close Monitoring Due to Risk of Patient Decompensation
[2018-09-29 07:16] LABS: ABSOLUTE EOSINOPHILS # (AUTO) 0.3 10^3/uL (0.0-0.6); ABSOLUTE MONOCYTES (AUTO) 0.8 10^3/uL (0.1-1.4); ABSOLUTE NEUT (AUTO) 5.9 10^3/uL (1.7-8.2); BASOPHILS % (AUTO) 0.2 % (0-2); HEMATOCRIT 36.9 % (37.9-51.0); LYMPHOCYTES % (AUTO) 22.1 % (13-45); MEAN CORPUSCULAR HEMOGLOBIN 27.9 pg (27.0-33.4); MEAN CORPUSCULAR HGB CONC 33.7 g/dL (32.0-36.0); MEAN CORPUSCULAR VOLUME 83 fl (80-97); MONOCYTES % (AUTO) 8.6 % (3-13); PLATELET COUNT 190 10^3/uL (150-450); RED BLOOD COUNT 4.46 10^6/uL (4.35-5.55); RED CELL DISTRIBUTION WIDTH 13.7 % (11.5-14.0); SEGMENTED NEUTROPHILS % (AUTO) 66.1 % (42-78); TOTAL CELLS COUNTED % (AUTO) 100 %; WHITE BLOOD COUNT 8.9 10^3/uL (4.0-10.5)
[2018-09-29 07:22] LABS: HEMOGLOBIN 12.5 g/dL (13.5-17.0)
[2018-09-29 07:33] LABS: ANION GAP 10 (5-19); BLOOD UREA NITROGEN 15 mg/dL (7-20); CALCIUM 8.9 mg/dL (8.4-10.2); CARBON DIOXIDE 22 mmol/L (22-30); CHLORIDE 107 mmol/L (98-107); GLUCOSE 262 mg/dL (75-110); POTASSIUM 4.7 mmol/L (3.6-5.0); SODIUM 138.9 mmol/L (137-145)
--- NOTE | 2018-09-29 07:53 | EKG REPORT ---
SEVERITY:- OTHERWISE NORMAL ECG - SINUS TACHYCARDIA : Confirmed by: Schuyler Burns MD 29-Sep-2018 07:51:59
[2018-09-29] MEDS ORDERED: INSULIN LISPRO 100 UNIT/ML 3 ML VIAL SUBCUT SCH (08:45)
[2018-09-29] MEDS: ACETAMINOPHEN 325 MG TABLET PO PRN ×2 (09:35→18:36)
[2018-09-29] MEDS ORDERED: INSULIN LISPRO 100 UNIT/ML 3 ML VIAL SUBCUT ONE ×2 (11:30→13:30)
--- NOTE | 2018-09-29 17:40 | PDOC PROGRESS REPORT ---
Subjective Progress Note for:: 09/29/18 Subjective:: states his tooth really hurts. states he has no money to see dentist. states its $100 to see dentist and more to do get things done. he's not sure how he went into DKA. otherwise has no other complaints. Reason For Visit: DKA ILEUS Physical Exam Vital Signs: Temp Pulse Resp BP Pulse Ox 99.1 F 92 20 116/58 L 100 09/29/18 16:49 09/29/18 16:49 09/29/18 16:49 09/29/18 16:49 09/29/18 16:49 Intake & Output 09/28/18 09/29/18 09/30/18 06:59 06:59 06:59 Intake Total 4352 550 Output Total 900 Balance 3452 550 Weight 160 lb 0.889 oz General appearance: PRESENT: no acute distress Head exam: PRESENT: atraumatic, normocephalic Eye exam: PRESENT: EOMI. ABSENT: conjunctival injection, scleral icterus Ear exam: PRESENT: normal external ear exam Teeth exam: PRESENT: dental tenderness - left lower row of teeth- TTP, poor dentation Neck exam: ABSENT: tracheal deviation Respiratory exam: PRESENT: clear to auscultation carrie, symmetrical Cardiovascular exam: PRESENT: +S1, +S2 Pulses: PRESENT: +2 pedal pulses bilateral GI/Abdominal exam: PRESENT: normal bowel sounds, soft. ABSENT: tenderness Extremities exam: ABSENT: pedal edema Neurological exam: PRESENT: alert, awake, oriented to person, oriented to place, oriented to time, oriented to situation, CN II-XII grossly intact Skin exam: PRESENT: dry, warm Results Laboratory Results: 09/29/18 06:37 09/29/18 06:37 09/28/18 09/28/18 09/28/18 22:05 22:05 22:05 WBC 10.4 RBC 5.24 Hgb 14.7 Hct 44.1 MCV 84 MCH 28.1 MCHC 33.5 RDW 13.6 Plt Count 242 Seg Neutrophils % 78.1 H Lymphocytes % 15.5 Monocytes % 4.5 Eosinophils % 1.8 Basophils % 0.1 Absolute Neutrophils 8.1 Absolute Lymphocytes 1.6 Absolute Monocytes 0.5 Absolute Eosinophils 0.2 Absolute Basophils 0.0 VBG pH Cancelled VBG pCO2 Cancelled VBG HCO3 Cancelled VBG Base Excess Cancelled Sodium 135.5 L Potassium 5.0 Chloride 97 L Carbon Dioxide 16 L Anion Gap 23 H BUN 20 Creatinine 1.04 Est GFR ( Amer) > 60 Est GFR (Non-Af Amer) > 60 Glucose 547 H* Calcium 10.3 H Total Bilirubin 1.0 AST 17 ALT 24 Alkaline Phosphatase 201 H Total Protein 7.9 Albumin 5.1 H Lipase Urine Color Urine Appearance Urine pH Ur Specific [place] Urine Protein Urine Glucose (UA) Urine Ketones Urine Blood Urine Nitrite Ur Leukocyte Esterase Urine WBC (Auto) Urine RBC (Auto) 09/28/18 09/28/18 09/28/18 22:05 22:30 23:58 WBC RBC Hgb Hct MCV MCH MCHC RDW Plt Count Seg Neutrophils % Lymphocytes % Monocytes % Eosinophils % Basophils % Absolute Neutrophils Absolute Lymphocytes Absolute Monocytes Absolute Eosinophils Absolute Basophils VBG pH 7.33 VBG pCO2 32.4 L VBG HCO3 16.8 L VBG Base Excess -7.9 Sodium Potassium Chloride Carbon Dioxide Anion Gap BUN Creatinine Est GFR ( Amer) Est GFR (Non-Af Amer) Glucose Calcium Total Bilirubin AST ALT Alkaline Phosphatase Total Protein Albumin Lipase 18.2 L Urine Color STRAW Urine Appearance CLEAR Urine pH 5.0 Ur Specific [place] 1.024 Urine Protein NEGATIVE Urine Glucose (UA) >=500 H Urine Ketones 80 H Urine Blood NEGATIVE Urine Nitrite NEGATIVE Ur Leukocyte Esterase NEGATIVE Urine WBC (Auto) 1 Urine RBC (Auto) 0 09/29/18 09/29/18 09/29/18 01:20 06:37 06:37 WBC 8.9 RBC 4.46 Hgb 12.5 L D Hct 36.9 L MCV 83 MCH 27.9 MCHC 33.7 RDW 13.7 Plt Count 190 Seg Neutrophils % 66.1 Lymphocytes % 22.1 Monocytes % 8.6 Eosinophils % 3.0 Basophils % 0.2 Absolute Neutrophils 5.9 Absolute Lymphocytes 2.0 Absolute Monocytes 0.8 Absolute Eosinophils 0.3 Absolute Basophils 0.0 VBG pH VBG pCO2 VBG HCO3 VBG Base Excess Sodium 138.0 138.9 Potassium 4.1 4.7 Chloride 106 107 Carbon Dioxide 23 22 Anion Gap 9 10 BUN 17 15 Creatinine 0.75 0.79 Est GFR ( Amer) > 60 > 60 Est GFR (Non-Af Amer) > 60 > 60 Glucose 226 H 262 H Calcium 8.9 8.9 Total Bilirubin AST ALT Alkaline Phosphatase Total Protein Albumin Lipase Urine Color Urine Appearance Urine pH Ur Specific [place] Urine Protein Urine Glucose (UA) Urine Ketones Urine Blood Urine Nitrite Ur Leukocyte Esterase Urine WBC (Auto) Urine RBC (Auto) 09/28/18 22:05 Troponin I < 0.012 Impressions: Acute Abdomen Series 09/28/18 22:22 IMPRESSION: Early or partial small bowel obstruction versus small bowel ileus. copyright 2010 [employer]- All Rights Reserved Assessment & Plan - Diagnosis (1) Dental caries Is this a current diagnosis for this admission?: Yes (2) Diabetes mellitus type 1 Qualifiers: Diabetes mellitus complication status: with unspecified complications Qualified Code(s): E10.8 - Type 1 diabetes mellitus with unspecified complications Is this a current diagnosis for this admission?: Yes (3) DKA (diabetic ketoacidoses) Qualifiers: Diabetes mellitus type: type 1 Diabetes mellitus complication detail: without coma Qualified Code(s): E10.10 - Type 1 diabetes mellitus with ketoacidosis without coma Is this a current diagnosis for this admission?: Yes - Plan Summary Plan Summary: DKA- AG closed. he received lantus 15u this morning. but his glucose this after >450. had to receive multiple doses of insulin to bring it down to <250. will start him on 22u Lantus qhs, 10u regular insulin TID and SSI. at home he's on 30u lantus and mealtime insulin- states about 15u TID tooth carries- can't afford dentist- likely infected- on levaquin- will continue for now- but likely switch him to augmentin on discharge. d/c when sugars are better controlled. switch him to inpatient status
[2018-09-29] MEDS: INSULIN REG, HUMAN 100 UNIT/ML 3 ML VIAL (PYX) SUBCUT SCH (18:30)
[2018-09-29] MEDS: INSULIN LISPRO 100 UNIT/ML 3 ML VIAL SUBCUT SCH ×2 (18:30→22:16)
[2018-09-29] MEDS: OXYCODONE HCL IR 5 MG TABLET PO PRN ×2 (19:30→23:14)
[2018-09-29] MEDS ORDERED: LEVOFLOXACIN 750 MG/D5W RTU 750 MG/150 ML RTUPB IV SCH (22:00)
[2018-09-29] MEDS ORDERED: INSULIN GLARGINE,HUM.REC.ANLOG 300 UNIT/3 ML INSULN.PEN SUBCUT SCH ×2 (22:00)
[2018-09-30] MEDS: OXYCODONE HCL IR 5 MG TABLET PO PRN (04:21)
[2018-09-30] MEDS: KETOROLAC TROMETHAMINE INJ/PF 30 MG/1 ML SDV IV PRN (05:23)
[2018-09-30] MEDS: HEPARIN SOD (PORCINE) 5,000 UNIT/ML 1 ML SYRINGE SUBCUT SCH (05:25)
[2018-09-30] MEDS: INSULIN LISPRO 100 UNIT/ML 3 ML VIAL SUBCUT SCH ×2 (08:07→11:15)
[2018-09-30] MEDS: INSULIN REG, HUMAN 100 UNIT/ML 3 ML VIAL (PYX) SUBCUT SCH (08:13)
[2018-09-30 09:21] VITALS: BP 119/58
--- NOTE | 2018-09-30 09:41 | PDOC DISCHARGE SUMMARY ---
General - Admit/Disc Date/PCP Admission Date/Primary Care Provider: 09/29/18 00:08 Discharge Date: 09/30/18 - Discharge Diagnosis (1) Dental caries Is this a current diagnosis for this admission?: Yes (2) Diabetes mellitus type 1 Is this a current diagnosis for this admission?: Yes (3) DKA (diabetic ketoacidoses) Is this a current diagnosis for this admission?: Yes - Additional Information Resuscitation Status: Full Code Discharge Diet: As Tolerated Discharge Activity: Activity As Tolerated Prescriptions: Amoxicillin Trihydrate [Amoxil 500 mg Capsule] 500 mg PO Q8 #29 capsule Ibuprofen [Motrin 600 mg Tablet] 600 mg PO TIDP PRN #90 tablet PRN Reason: Insulin Glargine,Hum.rec.anlog [Lantus Insulin 100 Unit/mL] 30 unit SUBCUT QHS #1 vial Insulin Regular, Human [Novolin R (Reg) Insulin 100 unit/mL] 0 unit SUBCUT .SLD SCALE #10 ml Oxycodone HCl [Oxy-Ir 5 mg Tablet] 5 mg PO Q6HP PRN #15 tablet PRN Reason: For Pain Scale 3-5 Home Medications: Acetaminophen [Tylenol 325 mg Tablet] 650 mg PO Q6HP PRN tablet 09/30/18 Amoxicillin Trihydrate [Amoxil 500 mg Capsule] 500 mg PO Q8 #29 capsule 09/30/18 Ibuprofen [Motrin 600 mg Tablet] 600 mg PO TIDP PRN #90 tablet 09/30/18 Insulin Glargine,Hum.rec.anlog [Lantus Insulin 100 Unit/mL] 30 unit SUBCUT QHS #1 vial 09/30/18 Insulin Regular, Human [Novolin R (Reg) Insulin 100 unit/mL] 0 unit SUBCUT .SLD SCALE #10 ml 09/30/18 Oxycodone HCl [Oxy-Ir 5 mg Tablet] 5 mg PO Q6HP PRN #15 tablet 09/30/18 History of Present Illness History of Present Illness: CHEPE WALKER is a 23 year old male admitted for DKA Hospital Course Hospital Course: his gap closed next morning but his glucose remained very high- this delayed a possible discharge. his insulin was titrated appropriately- glucose is better today- had a long discussion about this diabetes- he understands how important it is to control his diabetes. will prescribe him lantus and novolin R- he monitors his glucose and gives himself sliding scale novolin R at home- usually 15u three times with meals. for his tooth pain - i told him to f/u with dentist or PCP. i have him instructions as stated below. he had no complaints besides tooth pain this morning. start taking amoxicillin three times a day with food for 10 days start taking motrin 600mg three times a day with food as needed for tooth pain- follow up with a dentist next week take tylenol as directed and as needed for pain- alternate with motrin [facility]- try and get a PCP if possible check your sugars 4 times a day- take your lantus and novolin as prescribed. talk to your doctor about your diabetes Physical Exam Vital Signs: Temp Pulse Resp BP Pulse Ox 98.5 F 88 17 119/58 L 100 09/30/18 09:19 09/30/18 09:19 09/30/18 09:19 09/30/18 09:19 09/30/18 09:19 Intake & Output 09/29/18 09/30/18 10/01/18 06:59 06:59 06:59 Intake Total 4352 700 Output Total 900 Balance 3452 700 Weight 160 lb 0.889 oz 160 lb 7.944 oz General appearance: PRESENT: no acute distress Head exam: PRESENT: atraumatic, normocephalic Eye exam: PRESENT: EOMI. ABSENT: conjunctival injection, scleral icterus Ear exam: PRESENT: normal external ear exam Mouth exam: PRESENT: moist, tongue midline Teeth exam: PRESENT: dental tenderness, poor dentation Neck exam: ABSENT: tracheal deviation Respiratory exam: PRESENT: clear to auscultation carrie, symmetrical Cardiovascular exam: PRESENT: +S1, +S2 Pulses: ABSENT: +2 pedal pulses bilateral GI/Abdominal exam: PRESENT: normal bowel sounds, soft. ABSENT: tenderness Extremities exam: ABSENT: pedal edema Neurological exam: PRESENT: alert, awake, oriented to person, oriented to place, oriented to time, oriented to situation, CN II-XII grossly intact Skin exam: PRESENT: dry, warm Results Laboratory Results: 09/29/18 06:37 09/29/18 06:37 09/28/18 22:05 Troponin I < 0.012 Impressions: Acute Abdomen Series 09/28/18 22:22 IMPRESSION: Early or partial small bowel obstruction versus small bowel ileus. copyright 2010 [employer]- All Rights Reserved Qualifiers - * PATIENT BEING DISCHARGED WITH ANY OF THE FOLLOWING DIAGNOSIS: No Plan Time Spent: Less than 30 Minutes
[2018-09-30] MEDS ORDERED: AMOXICILLIN TRIHYDRATE 500 MG CAPSULE PO SCH (10:00)
== END 2018-09-30 11:27 | disposition home or self-care (01) | DRG 639 ==
LOC: ER 21:52 → EH 09-29 00:08 → 4S 09-29 02:10
PROVIDERS: ADMIT Internal Medicine; ATTEND Internal Medicine
DX: E10.10 Type 1 diabetes mellitus with ketoacidosis without coma (principal); E87.5 Hyperkalemia; E86.0 Dehydration; K02.9 Dental caries, unspecified; Z79.4 Long term (current) use of insulin; Z87.891 Personal history of nicotine dependence
CPT/HCPCS: 36415; 74022; 80048; 80053; 81001; 82803; 82962; 83036; 83690; 84484; 85025; 87040; 93005; 93010; 96361; 96374; 96375; 99285; J1644; J1815; J1885; J1956; J3010; J3480; J3490; J7030; S0028

== ENCOUNTER 2019-04-11 21:19 | Emergency (ER) | payer BC ==
[2019-04-11 21:29] VITALS: BP 135/83
== END 2019-04-12 03:21 | disposition left against medical advice (07) ==
LOC: ER 21:19
DX: Z53.21 Procedure and treatment not carried out due to patient leaving prior to being seen by health care provider (principal)

== ENCOUNTER 2019-04-12 06:41 | Emergency (ER) | payer OTHER, BC ==
--- NOTE | 2019-04-12 08:41 | ER Document Report ---
HPI - HPI Time Seen by Provider: 04/12/19 08:39 Pain Level: 3 Notes: 24-year-old male presents the ED with complaints of having a itchy rash on his torso, back, upper thighs and hamstrings that started approximately 2 PM yesterday. Patient did take 25 mg of Benadryl without relief. Denies any new medications foods or travel. Denies new laundry detergent, lotions, deodorant. Rash is only where he was wearing his work clothing. worn patient was wearing his work close yesterday. Denies fevers, chills, chest pain,palpitations, shortness of breath, dyspnea, nausea, vomiting, diarrhea, abdominal pain, hematuria,blurred vision, double vision, loss of vision, speech changes, LH, dizziness, syncope, headaches, wheezing, ST, URI, neck pain, weakness, bowel or bladder dysfunction, saddle anesthesia, numbness or tingling in bilateral upper or lower extremities equally, muscle paralysis, weakness in bilateral upper or lower extremities equally. - REPRODUCTIVE Reproductive: DENIES: : Past Medical History - General Information source: Patient - Social History Smoking Status: Never Smoker Frequency of alcohol use: Rare Drug Abuse: None Family History: DM Patient has suicidal ideation: No Patient has homicidal ideation: No - Past Medical History Cardiac Medical History: Denies: Hx Heart Murmur Endocrine Medical History: Reports: Hx Diabetes Mellitus Type 1 Renal/ Medical History: Denies: Hx Peritoneal Dialysis Psychiatric Medical History: Denies: Hx Depression - Immunizations Immunizations up to date: Yes Hx Diphtheria, Pertussis, Tetanus Vaccination: Yes Vertical Provider Document - CONSTITUTIONAL Exam Limitations: No Limitations General Appearance: Severe Distress Notes: PHYSICAL EXAMINATION: GENERAL: Well-appearing, well-nourished and in no acute distress. HEAD: Atraumatic, normocephalic. EYES: Pupils equal round and reactive to light, extraocular movements intact, sclera anicteric, conjunctiva are normal. ENT: Nares patent, oropharynx clear without exudates. Moist mucous membranes. NECK: Normal range of motion, supple without lymphadenopathy LUNGS: Breath sounds clear to auscultation bilaterally and equal. No wheezes rales or rhonchi. HEART: Regular rate and rhythm without murmurs ABDOMEN: Soft, nontender, nondistended abdomen. No guarding, no rebound. No masses appreciated. Musculoskeletal: Normal range of motion, no pitting or edema. No cyanosis. NEUROLOGICAL: Cranial nerves grossly intact. Normal speech, normal gait. Normal sensory, motor exams PSYCH: Normal mood, normal affect. SKIN: Warm, Dry, normal turgor, no rashes or lesions noted. urticaria rash on torso, back, upper arms well-demarcated where clothing was for T-shirt, upper legs wear shorts were with you to [place]an[place] rash. No open wounds, drainage. No warmth to touch. No linear markings, burrowing or vesicles. - INFECTION CONTROL TRAVEL OUTSIDE OF THE [place] IN LAST 30 DAYS: No Course - Re-evaluation Re-evalutation: 04/12/19 09:30 Vital stable, no distress, afebrile. Nurse's notes reviewed. Patient given 50 mg Benadryl IM, 125mg Solu-Medrol and 40 mg of Pepcid. On reevaluation, patient's urticarial rash has diminished.Patient presents with symptoms consistent with an allergic reaction without anaphylaxis. Only cutaneous involvement with multiple areas of hives. Pt took his BS while in room and then gave himself insulin, this was not communicated with the nurse with this provider. On recheck of his blood sugar approximately 30 minutes later, his blood sugars down to 320s. vitals otherwise within normal limits at time of arrival. No respiratory, GI, cardiovascular, or oral pharyngeal symptoms. A trial of epinephrine for symptom resolution was offered to the patient. This did resolve the majority of the patient's hives. Will recommend ongoing antihistamine therapy as an outpatient with Benadryl, prednisone, Zantac. Work note given. at this time will discharge with return precautions and follow-up recommendations. Verbal discharge instructions given a the bedside and opportunity for questions given. Medication warnings reviewed. Patient is in agreement with this plan and has verbalized understanding of return precautions and the need for primary care follow-up in the next 24-72 hours. 04/12/19 10:26 - Vital Signs Vital signs: Temp Pulse Resp BP Pulse Ox 97.6 F 85 16 116/74 100 04/12/19 06:45 04/12/19 06:45 04/12/19 06:45 04/12/19 06:45 04/12/19 06:45 Discharge - Discharge Clinical Impression: Diabetes mellitus type 1 Allergic reaction Qualifiers: Encounter type: initial encounter Qualified Code(s): T78.40XA - Allergy, unspecified, initial encounter Condition: Stable Disposition: HOME, SELF-CARE Instructions: Acute Allergic Reaction ([facility]) Additional Instructions: Allergic Contact Dermatitis You have a local allergic reaction, called contact dermatitis. This an allergy to something in contact with your skin. Poison stephanie, jewelry, soaps, perfumes, and chemicals are common causes. Typically, an itchy rash develops a few days after the exposure. If the reaction is severe, blisters may develop. Two to three weeks may be required for healing. Generally, treatment consists of: (1) a thorough washing with soap to remove the offending substance, (2) take of a steroid pills (3) antihistamines for itching. If the reaction is particularly severe, further measures may be required. These can include soaking in epsom salts or Chris's solution, and oral cortisone medications. Call the doctor if the rash worsens despite treatment, or if signs of infection occur such as spreading redness, red streaks, swollen glands, swelling, or fever. Advised to increase oral fluids, follow a low-carb diet, check blood sugars regularly and record them, administer insulin per sliding scale accordingly. Return immediately for any new or worsening symptoms. Follow up with primary care provider, call tomorrow to make followup appointment. Prescriptions: Diphenhydramine HCl [Benadryl] 25 mg PO Q6HP PRN #20 capsule PRN Reason: Prednisone [Deltasone 20 mg Tablet] 3 tab PO DAILY 5 Days #15 tablet Ranitidine HCl [Zantac] 150 mg PO BID #14 tablet Forms: Return to Work Referrals: [facility] [Primary Care Provider] - Follow up as needed ROMARIO LOVE MD [ACTIVE STAFF] - Follow up as needed
[2019-04-12] MEDS ORDERED: METHYLPREDNISOLONE INJ 125 MG/2 ML SDV IM ONE (09:23)
[2019-04-12] MEDS ORDERED: DIPHENHYDRAMINE HCL 50 MG/ML VIAL IM ONE (09:23)
[2019-04-12] MEDS ORDERED: FAMOTIDINE 20 MG TABLET PO ONE (09:23)
[2019-04-12 10:50] VITALS: BP 106/55
== END 2019-04-12 10:51 | disposition home or self-care (01) ==
LOC: ER 06:41
DX: T78.40XA Allergy, unspecified, initial encounter (principal); R21 Rash and other nonspecific skin eruption; E10.9 Type 1 diabetes mellitus without complications
CPT/HCPCS: 82962; J1200; J2930; 96372; 99283